=== PATIENT | female | born 1930 | race Caucasian/White ===

== ENCOUNTER 2016-10-24 15:15 | Observation (INO) | payer OTHER ==
--- NOTE | 2016-10-24 16:36 | PDOC ---
History of Present Illness - General History Source: Patient, Family Exam Limitations: No Limitations - History of Present Illness Initial Comments: 10/24/16 16:35 The patient is an 86F with a PMH of HTN and glaucoma who presents to the ED via EMS after an episode of lightheadedness. The patient was at her ophthamologist' s office and felt lightheaded and began seeing illusions. She was given water and sent to the ED. The patient now states that she feels fine and nothing is going on. PSH: cholecystectomy ALlergies: ASA Social: does not smoke, drink, or use recreational drugs <Guillermo Knott - Last Filed: 11/08/16 13:42> <Zoe Pritchett - Last Filed: 11/09/16 12:04> - General Chief Complaint: Blood Pressure Problem Stated Complaint: LOW BLOOD PRESSURE Time Seen by Provider: 10/24/16 15:28 Past History - Past Medical History HTN: Yes - Immunization History Immunization Up to Date: Yes - Psycho/Social/Smoking Cessation Hx Suicidal Ideation: No Smoking History: Never smoked <Guillermo Knott - Last Filed: 11/08/16 13:42> <Zoe Pritchett - Last Filed: 11/09/16 12:04> - Past Medical History Allergies/Adverse Reactions: Allergies Allergy/AdvReac Type Severity Reaction Status Date / Time aspirin Allergy Verified 10/24/16 16:31 Home Medications: Ambulatory Orders Brimonidine Tartrate/Timolol [Combigan 0.2%-0.5% Eye Drops] 10 ml OP DAILY 10/25 Miscellaneous Medical Supply [Outpatient Order] 1 each ASDIR #1 misc Sulfamethoxazole/Trimethoprim [Bactrim DS -] 1 tab PO BID #2 tablet 10/25/16 Review of Systems - Review of Systems Able to Perform ROS?: Yes Is the patient limited Vietnamese proficient: No Constitutional: No: Chills, Fever HEENTM: No: Eye Pain, Blurred Vision Respiratory: No: Cough, Shortness of Breath Cardiac (ROS): No: Chest Pain, Palpitations ABD/GI: No: Abdominal Distended, Constipated, Diarrhea, Nausea, Vomiting : No: Burning, Dysuria, Discharge Neurological: No: Headache, Numbness, Paresthesia, Tingling, Weakness <Oraha,Guillermo - Last Filed: 11/08/16 13:42> *Physical Exam - Vital Signs Last Vital Signs Temp Pulse Resp BP Pulse Ox 97.9 F 54 L 18 78/59 99 10/24/16 15:37 10/24/16 15:37 10/24/16 15:37 10/24/16 15:37 10/24/16 15:37 - Physical Exam General Appearance: Yes: Nourished, Appropriately Dressed HEENT: positive: Pale Conjunctivae. negative: Muffled/Hoarse voice Respiratory/Chest: positive: Lungs Clear, Normal Breath Sounds. negative: Chest Tender, Respiratory Distress Cardiovascular: positive: Regular Rhythm, S1, S2, Bradycardia, Systolic Murmur ( aortic stenosis) Gastrointestinal/Abdominal: positive: Flat, Soft. 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 negative: EOM Palsy, Numbness, Sensory Deficit, Confused, Disoriented <Guillermo Knott - Last Filed: 11/08/16 13:42> - Vital Signs Last Vital Signs Temp Pulse Resp BP Pulse Ox 97.8 F 67 18 146/76 100 10/25/16 18:00 10/25/16 18:00 10/25/16 17:00 10/25/16 17:00 10/25/16 09:00 <Zoe Pritchett - Last Filed: 11/09/16 12:04> Heart Score/ECG Review - Roxbury Roxbury: Left Roxbury Deviation - QRS Widened: LBBB - ECG Impressions Bradycardia: Yes Heart Block: 1st Degree Block(>20mils) <Guillermo Knott - Last Filed: 11/08/16 13:42> ED Treatment Course - LABORATORY CBC & Chemistry Diagram: 10/24/16 16:42 10/25/16 06:00 <Guillermo Knott - Last Filed: 11/08/16 13:42> - LABORATORY CBC & Chemistry Diagram: 10/24/16 16:42 10/25/16 06:00 - ADDITIONAL ORDERS Additional order review: 10/24/16 16:42 RBC 3.88 MCV 98.9 H MCHC 32.5 RDW 13.6 MPV 7.7 Neutrophils % 73.0 Lymphocytes % 18.7 Monocytes % 6.1 Eosinophils % 1.6 Basophils % 0.6 - Medications Given in the ED: ED Medications Discontinued Medications Generic Name Dose Route Start Last Admin Trade Name Rossy PRN Reason Stop Dose Admin Glucagon 3 mg 10/24/16 17:03 10/24/16 17:19 Glucagon - IVPUSH 10/24/16 17:04 3 mg ONCE ONE Administration Glucagon 3 mg 10/24/16 21:02 10/24/16 22:43 Glucagon - IVPUSH 10/24/16 21:03 Not Given ONCE ONE Heparin Sodium (Porcine) 5,000 unit 10/24/16 22:15 10/25/16 13:34 Heparin - SQ 5,000 unit TID BAN Administration Sodium Chloride 500 mls @ 500 mls/hr 10/24/16 19:02 10/24/16 19:06 Normal Saline - IV 10/24/16 20:01 500 mls/hr ASDIR STA Administration Ceftriaxone Sodium 1 gm/ 50 mls @ 100 mls/hr 10/24/16 20:47 10/24/16 21:02 Dextrose IVPB 10/24/16 21:16 100 mls/hr ONCE ONE Administration Sodium Chloride 500 mls @ 500 mls/hr 10/24/16 22:03 10/25/16 00:06 Normal Saline - IV 10/24/16 23:02 500 mls/hr ASDIR STA Administration Sodium Chloride 1,000 mls @ 75 mls/hr 10/24/16 22:30 10/25/16 01:01 Normal Saline - IV 75 mls/hr ASDIR BAN Administration Sodium Chloride 1,000 mls @ 75 mls/hr 10/25/16 02:39 10/25/16 09:16 Normal Saline - IV 10/26/16 11:49 75 mls/hr ASDIR BAN Administration Ceftriaxone Sodium 50 mls @ 100 mls/hr 10/25/16 12:15 10/25/16 13:34 Rocephin 1gm Ivpb (Pre-Docked) IVPB 100 mls/hr DAILY BAN Administration Sodium Chloride 250 ml 10/24/16 20:47 10/24/16 21:02 Normal Saline - IV 10/24/16 20:48 250 ml ONCE ONE Administration <Zoe Pritchett - Last Filed: 11/09/16 12:04> Medical Decision Making - Medical Decision Making 10/24/16 16:52 The patient is an 86F with a PMH of HTN and glaucoma who presented to the ED after an episode of lightheadedness. The patient has no current complaints. I have done a chest pain workup on the patient and basic labs. 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 <Guillermo Knott - Last Filed: 11/08/16 13:42> *DC/Admit/Observation/Transfer - Discharge Dispostion Admit: Yes - Attestations Physician Attestion: 11/08/16 13:42 I, Dr. Guillermo Knott, attest that this document has been prepared under my direction and personally reviewed by me in its entirety. I further attest, that it accurately reflects all work, treatment, procedures and medical decision -making performed by me. <Guillermo Knott - Last Filed: 11/08/16 13:42> <Zoe Pritchett - Last Filed: 11/09/16 12:04> Diagnosis at time of Disposition: Orthostatic hypotension UTI (urinary tract infection) Qualifiers: Urinary tract infection type: site unspecified Hematuria presence: without hematuria Qualified Code(s): N39.0 - Urinary tract infection, site not specified - Discharge Dispostion Disposition: HOME Condition at time of disposition: Stable - Prescriptions
--- NOTE | 2016-10-24 16:36 | PDOC ---
Attending Attestation - Resident Resident Name: Jose AntonioGuillermo rivera - ED Attending Attestation I have performed the following: I have examined & evaluated the patient, The case was reviewed & discussed with the resident, I agree w/resident's findings & plan, Exceptions are as noted - HPI HPI: 86 yo F history HTN, glaucoma presents with episode of lightheadedness. 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 She states that she feels better now, no complaints at present. - Physicial Exam PE: GENERAL: Awake, alert, and fully oriented, in no acute distress. Mild pallor. HEAD: No signs of trauma EYES: PERRLA, EOMI, sclera anicteric, conjunctiva clear ENT: Auricles normal inspection, hearing grossly normal, nares patent, oropharynx clear without exudates. Dry mucosa NECK: Normal ROM, supple, no lymphadenopathy, JVD, or masses LUNGS: Breath sounds equal, clear to auscultation bilaterally. No wheezes, and no crackles HEART: Regular rate and rhythm, normal S1 and S2, no murmurs, rubs or gallops ABDOMEN: Soft, nontender, normoactive bowel sounds. No guarding, no rebound. No masses EXTREMITIES: Normal range of motion, no edema. No clubbing or cyanosis. No cords, erythema, or tenderness NEUROLOGICAL: Cranial nerves II through XII grossly intact. Normal speech, normal gait SKIN: Warm, Dry, normal turgor, no rashes or lesions noted. - Medical Decision Making Pt noted to have significant hypotension on arrival. She mentions that she recently had a decrease in her BP medication, but perhaps she is still taking too much. will give her glucagon to reverse. Will gently hydrate as well. Anticipate admission to tele.
[2016-10-24 16:52] LABS: BASOPHIL 0.6 % (0-2.0); EOSINOPHIL 1.6 % (0-4.5); MCH 32.2 pg (25.7-33.7); MCHC 32.5 g/dl (32.0-36.0); MEAN CELL VOLUME 98.9 fl (80-96); MEAN PLT VOLUME 7.7 fl (7.5-11.1); PLATELET COUNT 184 K/MM3 (134-434); RDW 13.6 % (11.6-15.6); WHITE BLOOD COUNT 5.4 K/mm3 (4.0-10.0)
[2016-10-24] MEDS ORDERED: GLUCAGON 1 MG KIT IVPUSH ONE ×2 (17:03→21:02)
[2016-10-24] MEDS ORDERED: GlUCAGON HUMAN RECOMBINANT 1 MG/VIAL ONE ×4 (17:16→21:31)
[2016-10-24 17:18] LABS: ALBUMIN 3.2 g/dl (3.4-5.0); ANION GAP 12 (8-16); BILIRUBIN,TOTAL 0.5 mg/dL (0.2-1.0); CALCIUM 8.2 mg/dL (8.5-10.1); CO2 18 mmol/L (21-32); CREATININE 1.4 mg/dL (0.55-1.02); GLUCOSE,RANDOM 139 mg/dL (74-106); SGPT/ALT 17 U/L (12-78); TOT PROT 6.3 g/dl (6.4-8.2)
[2016-10-24 17:19] LABS: ALK PHOS 71 U/L (45-117)
[2016-10-24 17:23] LABS: SGOT/AST 20 U/L (15-37)
[2016-10-24 17:47] LABS: TROPONIN I < 0.02 ng/ml (0.00-0.05)
[2016-10-24 18:39] LABS: URINE APPEARANCE CLEAR; URINE BILIRUBIN NEGATIVE (NEGATIVE); URINE BLOOD 1+ (NEGATIVE); URINE COLOR YELLOW; URINE GLUCOSE (UA) NEGATIVE (NEGATIVE); URINE KETONE NEGATIVE (NEGATIVE); URINE NITRITE NEGATIVE (NEGATIVE); URINE PROTEIN NEGATIVE (NEGATIVE); URINE UROBILINOGEN NEGATIVE mg/dL (0.2-1.0)
[2016-10-24 18:44] LABS: URINE LEUK ESTERASE 3+ (NEGATIVE)
[2016-10-24 18:56] LABS: GRANULAR CASTS 2 /lpf; URINE HYALINE CAST 2 /lpf; URINE MUCUS RARE; URINE RBC 12 /hpf (0-3); URINE WBC 85 /hpf (3-5)
[2016-10-24] MEDS ORDERED: SODIUM CHLORIDE 500 ML IV STA ×2 (19:02→22:03)
[2016-10-24] MEDS ORDERED: CEFTRIAXONE 1 GM in DEXTROSE 5%-WATER - 50 ML IVPB ONE (20:47)
[2016-10-24] MEDS ORDERED: SODIUM CHLORIDE 0.9% 1000 ML INFUS.BAG IV ONE (20:47)
[2016-10-24] MEDS ORDERED: CEFTRIAXONE 50 ML ONE (20:56)
--- NOTE | 2016-10-24 22:14 | HP ---
HISTORY OF PRESENT ILLNESS: Patient is an 86 year old female with a PMHx of HTN and glaucoma who presented today for complaints of dizziness, lightheadedness, and hypotension. Patient was at the ENT clinic then all of a sudden she felt very weak and slumped over and was told to come to the ED. Patient reports when she stands up it worsens and when she is given water it improves. She also reports having diarrhea for the last year after having her gallbladder removed. Otherwise, patient denies chest pain, palpitations, abdominal pain, vomiting, hematuria, dysuria, frequency. PHYSICAL EXAMINATION Vital Signs - 24 hr 10/24/16 10/24/16 10/24/16 15:37 17:00 17:34 Temperature 97.9 F Pulse Rate 54 L Pulse Rate [ 51 L 57 L Apical] Respiratory 18 16 16 Rate Blood Pressure 78/59 Blood Pressure 88/50 109/52 [Right Arm] O2 Sat by Pulse 99 100 100 Oximetry (%) 10/24/16 10/24/16 10/24/16 18:33 18:57 19:58 Temperature 97.1 F L 97.4 F L Pulse Rate Pulse Rate [ 60 61 Apical] Respiratory 18 15 Rate Blood Pressure Blood Pressure 88/60 91/52 [Right Arm] O2 Sat by Pulse 100 99 Oximetry (%) GENERAL: Awake, alert, and fully oriented, in no acute distress. HEAD: Normal with no signs of trauma. EYES: Sclera anicteric, pale conjunctiva LUNGS: Breath sounds equal, clear to auscultation bilaterally. No wheezes, and no crackles. No accessory muscle use. HEART: Bradycardia with regular rhythm, normal S1 and S2 without murmur, rub or gallop. ABDOMEN: Soft, nontender, not distended, normoactive bowel sounds, no guarding, no rebound, no masses. LOWER EXTREMITIES: No peripheral edema. NEUROLOGICAL: Normal speech. Motor strength 5/5 bilaterally. Sensory intact. Laboratory Results - last 24 hr 10/24/16 10/24/16 10/24/16 16:42 16:42 16:45 WBC 5.4 RBC 3.88 Hgb 12.5 Hct 38.4 MCV 98.9 H MCH 32.2 MCHC 32.5 RDW 13.6 Plt Count 184 MPV 7.7 Neutrophils % 73.0 Lymphocytes % 18.7 Monocytes % 6.1 Eosinophils % 1.6 Basophils % 0.6 Sodium 140 Potassium 4.4 Chloride 110 H Carbon Dioxide 18 L Anion Gap 12 BUN 26 H Creatinine 1.4 H Creat Clearance w eGFR 35.82 Random Glucose 139 H Lactic Acid Calcium 8.2 L Total Bilirubin 0.5 AST 20 ALT 17 Alkaline Phosphatase 71 Creatine Kinase 40 Troponin I < 0.02 Total Protein 6.3 L Albumin 3.2 L Urine Color Urine Appearance Urine pH Ur Specific [place] Urine Protein Urine Glucose (UA) Urine Ketones Urine Blood Urine Nitrite Urine Bilirubin Urine Urobilinogen Ur Leukocyte Esterase Urine RBC Urine WBC Ur Epithelial Cells Hyaline Casts Granular Casts Urine Mucus 10/24/16 10/24/16 16:45 18:31 WBC RBC Hgb Hct MCV MCH MCHC RDW Plt Count MPV Neutrophils % Lymphocytes % Monocytes % Eosinophils % Basophils % Sodium Potassium Chloride Carbon Dioxide Anion Gap BUN Creatinine Creat Clearance w eGFR Random Glucose Lactic Acid 1.8 Calcium Total Bilirubin AST ALT Alkaline Phosphatase Creatine Kinase Troponin I Total Protein Albumin Urine Color Yellow Urine Appearance Clear Urine pH 5.0 Ur Specific [place] 1.015 Urine Protein Negative Urine Glucose (UA) Negative Urine Ketones Negative Urine Blood 1+ H Urine Nitrite Negative Urine Bilirubin Negative Urine Urobilinogen Negative Ur Leukocyte Esterase 3+ H Urine RBC 12 Urine WBC 85 Ur Epithelial Cells Rare Hyaline Casts 2 Granular Casts 2 Urine Mucus Rare Chest X-Ray (10/24/16): No acute pathology ASSESSMENT/PLAN: Patient is an 86 year old female with a PMHx of HTN and Glaucoma who presents s/ p syncopal episode. Patient was found to be hypotensive, bradycardic with ARMOND. Patient admitted for further monitoring and management. ASSESSMENT: -Pre-Syncopal Episode likely secondary to hypovolemia r/o neurological etiology vs cardiac etiology vs. medication induced -Hypotension -Bradycardia -ARMOND likely secondary to hypovolemia -Gastroenteritis -UTI -Hyperglycemia/insulin resistance PLAN -IV Fluids with NS -Othrostatics -Carotid doppler, ECHO, Lipid panel, A1C -TSH and Lyme ordered -Cortisol level -Neuro Consult -Cardiology consult placed -Will hold home medication Acetazolamide as it may be the reason for her hypovolemia and pre-syncopal episode -Ceftriaxone daily for UTI -CBC/BMP -Monitor Vitals -Fall risk -Prophylaxis with heparin SQ -Cardiac monitoring on telemetry Discussed with medical team and attending. Full H&P to follow Visit type - Emergency Visit Emergency Visit: Yes ED Registration Date: 10/24/16 Care time: The patient presented to the Emergency Department on the above date and was hospitalized for further evaluation of their emergent condition. - New Patient This patient is new to me today: Yes Date on this admission: 10/24/16 - Critical Care Critical Care patient: No
[2016-10-24] MEDS ORDERED: SODIUM CHLORIDE 1,000 ML IV SCH (22:30)
--- NOTE | 2016-10-24 22:40 | HP ---
CHIEF COMPLAINT: Dizziness, lightheadedness PCP: Aj Umanzor. HISTORY OF PRESENT ILLNESS: Patient is an 86 Year old white independent female, with PMHx of Glaucoma, HTN, who presented to the hospital today due to lightheadedness, dizziness and low blood pressure. She was in the ophthalmology clinic when she felt very drowsy and fatigue associated with visual illusions. She suddenly slumped over without loss of consciousness. However patient improved after giving her a cup of water and was sent to the ED. She reports worsening symptoms of dizziness and lightheadedness when standing up suddenly or getting out of bed. She reports loss of appetite and weight loss in the last 6 months, She complains of non bloody diarrhea (loose stool, 3 times/day ) since her gallbladder removal one year ago. She reports nocturn polyuria ( 3 times at night) She reports dyspnea on exertion and orthopnea( she uses 3 pillows at night ). She denies any fever, chills, headache, chest pain, abdominal pain, N/V , dysuria, hematuria, hemetemesis or melena. She denies any heat or cold intolerance but she reports dryness in her skin. She uses Acetazolamide 250 mg TID and an eye drop TID. ER course was notable for: (1)EK degree Av block , diego cardia @ 51 (2)NS Bolus 500 CC (3) Orthostatics: negative 123/52 supine, 115/58 sitting, 108/63 standing. Recent Travel:NO PAST MEDICAL HISTORY:HTN, Pre-diabetics, Cataract, Glaucoma. PAST SURGICAL HISTORY: Cataract left eye, cholecystectomy September 2015, . Social History: live by her self Smoking:None Alcohol:None Drugs: None Family History: significant for HTN, DM, Heart diseases. Allergies aspirin Allergy (Verified 10/24/16 16:31) HOME MEDICATIONS: * Acetazolamid 250 mg PO TID * combigan 0.2-0.5 % Eye drop TID * Bystolic 5 mg , 1/2 tab a day . Active Medications Generic Name Dose Route Start Last Admin Trade Name Freq PRN Reason Stop Dose Admin Heparin Sodium (Porcine) 5,000 unit 10/24/16 22:15 Heparin - SQ TID BAN Sodium Chloride 1,000 mls @ 75 mls/hr 10/24/16 22:30 Normal Saline - IV ASDIR BAN REVIEW OF SYSTEMS CONSTITUTIONAL: Absent: fever, chills, diaphoresis, +generalized weakness, malaise, loss of appetite, lost weight during last 6 months. HEENT: Absent: rhinorrhea, nasal congestion, throat pain, throat swelling, difficulty swallowing, mouth swelling, ear pain, eye pain, visual changes(catarract, glaucoma) CARDIOVASCULAR: Absent: chest pain,+ syncope, palpitations, irregular heart rate, lightheadedness, peripheral edema RESPIRATORY: Absent: cough, shortness of breath, dyspnea with exertion, orthopnea, wheezing, stridor, hemoptysis GASTROINTESTINAL: Absent: abdominal pain, abdominal distension, nausea, vomiting, diarrhea, constipation, melena, hematochezia GENITOURINARY: Absent: dysuria, frequency, urgency, hesitancy, hematuria, flank pain, genital pain MUSCULOSKELETAL: Absent: myalgia, arthralgia, joint swelling, back pain, neck pain SKIN: Absent: rash, itching, pallor HEMATOLOGIC/IMMUNOLOGIC: Absent: easy bleeding, easy bruising, frequent infections ENDOCRINE: Absent: unexplained weight gain, unexplained weight loss, heat intolerance, cold intolerance NEUROLOGIC: Absent: headache, focal weakness or paresthesias, dizziness, unsteady gait, seizure, mental status changes, bladder or bowel incontinence PSYCHIATRIC: Absent: anxiety, depression, suicidal or homicidal ideation, hallucinations. PHYSICAL EXAMINATION Vital Signs - 24 hr 10/24/16 10/24/16 10/24/16 15:37 17:00 17:34 Temperature 97.9 F Pulse Rate 54 L Pulse Rate [ 51 L 57 L Apical] Respiratory 18 16 16 Rate Blood Pressure 78/59 Blood Pressure 88/50 109/52 [Right Arm] O2 Sat by Pulse 99 100 100 Oximetry (%) 10/24/16 10/24/16 10/24/16 18:33 18:57 19:58 Temperature 97.1 F L 97.4 F L Pulse Rate Pulse Rate [ 60 61 Apical] Respiratory 18 15 Rate Blood Pressure Blood Pressure 88/60 91/52 [Right Arm] O2 Sat by Pulse 100 99 Oximetry (%) GENERAL: Awake, alert, and fully oriented, in no acute distress. HEAD: Normal with no signs of trauma. EYES: Pupils equal, round and reactive to light, extraocular movements intact, conjunctiva pallor. No lid lag.Cataract left eye. NECK: Normal range of motion, supple without lymphadenopathy, JVD, or masses. LUNGS: Breath sounds equal, clear to auscultation bilaterally. No wheezes, and no crackles. No accessory muscle use. HEART: sinus diego , normal S1 and S2 without murmur, rub or gallop. ABDOMEN: Soft, nontender, not distended, normoactive bowel sounds, no guarding, no rebound, no masses. No hepatomegaly or splenomegaly. MUSCULOSKELETAL: Normal range of motion at all joints. No bony deformities or tenderness. No CVA tenderness. UPPER EXTREMITIES: 2+ pulses, warm, well-perfused. No cyanosis. No clubbing. No peripheral edema. LOWER EXTREMITIES: 2+ pulses, warm, well-perfused. No calf tenderness. No peripheral edema. NEUROLOGICAL: Normal speech. Normal gait. PSYCHIATRIC: Cooperative. Good eye contact. Appropriate mood and affect. SKIN: Warm, dry, normal turgor, no rashes or lesions noted, normal capillary refill. dry mucous membranes. Laboratory Results - last 24 hr 10/24/16 10/24/16 10/24/16 16:42 16:42 16:45 WBC 5.4 RBC 3.88 Hgb 12.5 Hct 38.4 MCV 98.9 H MCH 32.2 MCHC 32.5 RDW 13.6 Plt Count 184 MPV 7.7 Neutrophils % 73.0 Lymphocytes % 18.7 Monocytes % 6.1 Eosinophils % 1.6 Basophils % 0.6 Sodium 140 Potassium 4.4 Chloride 110 H Carbon Dioxide 18 L Anion Gap 12 BUN 26 H Creatinine 1.4 H Creat Clearance w eGFR 35.82 Random Glucose 139 H Lactic Acid Calcium 8.2 L Total Bilirubin 0.5 AST 20 ALT 17 Alkaline Phosphatase 71 Creatine Kinase 40 Troponin I < 0.02 Total Protein 6.3 L Albumin 3.2 L Urine Color Urine Appearance Urine pH Ur Specific [place] Urine Protein Urine Glucose (UA) Urine Ketones Urine Blood Urine Nitrite Urine Bilirubin Urine Urobilinogen Ur Leukocyte Esterase Urine RBC Urine WBC Ur Epithelial Cells Hyaline Casts Granular Casts Urine Mucus 10/24/16 10/24/16 16:45 18:31 WBC RBC Hgb Hct MCV MCH MCHC RDW Plt Count MPV Neutrophils % Lymphocytes % Monocytes % Eosinophils % Basophils % Sodium Potassium Chloride Carbon Dioxide Anion Gap BUN Creatinine Creat Clearance w eGFR Random Glucose Lactic Acid 1.8 Calcium Total Bilirubin AST ALT Alkaline Phosphatase Creatine Kinase Troponin I Total Protein Albumin Urine Color Yellow Urine Appearance Clear Urine pH 5.0 Ur Specific [place] 1.015 Urine Protein Negative Urine Glucose (UA) Negative Urine Ketones Negative Urine Blood 1+ H Urine Nitrite Negative Urine Bilirubin Negative Urine Urobilinogen Negative Ur Leukocyte Esterase 3+ H Urine RBC 12 Urine WBC 85 Ur Epithelial Cells Rare Hyaline Casts 2 Granular Casts 2 Urine Mucus Rare CXR: No acute Pathology EK degree Av block , diego cardia @ 51 ASSESSMENT/PLAN: Patient is an 86 Year old white independent female, with PMHx of Glaucoma, cataract, HTN, who presented to the hospital today due to lightheadedness and dizziness was found to have low blood pressure 88/52. and wad admitted to monitor tele for observation. #Pre Syncopal episode likely 2/2 hypovolemia vs med side effect(Acetazolamide) vs cardiac vs nuero * IV fluids: NS 0.9 500 bolus followed by 75cc maintenance * Orthostatics: negative 123/52 supine, 115/58 sitting, 108/63 standing. * CBC, CMP * TSH, Lyme antibodies * Echo , EKG, Carotid doppler * lipid panel * gambling monitor * BP monitor * Hold acetazolamide for now * Vitals Q 4 Hr * * * # Hypotension : * 88/52 on admission improved to 109/52 with fluids * hold BP medicine Acetazolamide * BP monitor * # Digeo cardia, * P rate 51 on admission , improved to 61 * electronic device monitor * Vitals Q 4 * Hold Bystolic meds # UTI * Leuckoesterase + 3 * Start ceftriaxone 1 g IV in the Ed * continue Ceftriaxone 1 gm PO daily # ARMOND:likely 2/2 Hypovolemia (pre-renal) * BUN/CR:26/1.4 * IV fluids: NS 0.9 500 bolus followed by 75cc maintenance * encourage oral intake * F/U BUN/Cr # Hyperglycemia, pre-diabetic * Random Glucose 139 * HgA1c was ordered * Change life style * patient education # Glaucoma, chronic * Continue home meds cambigan 0.2-0.5% TID eye drop * F/U as out patient # F/E/N * NS@ 75 CC/Hr * Electrolytes WNL * regular diet # Proph * DVT: low risk , 5000 heparin SQ QHR * # Dispo * Admit for observation * Full code * Stewart Dahdal PGY1 Case was discussed with the medical team . Visit type - Emergency Visit Emergency Visit: Yes ED Registration Date: 10/24/16 Care time: The patient presented to the Emergency Department on the above date and was hospitalized for further evaluation of their emergent condition. - New Patient This patient is new to me today: Yes Date on this admission: 11/08/16 - Critical Care Critical Care patient: No
[2016-10-25] MEDS: HEPARIN NA (PORCINE) 5,000 UNITS/ML 1ML VIAL SQ SCH ×3 (00:07→13:34)
[2016-10-25 01:27] VITALS: BMI 23.1
[2016-10-25] MEDS ORDERED: SODIUM CHLORIDE 1,000 ML IV SCH (02:39)
[2016-10-25 05:32] LABS: CHOLESTEROL 221 mg/dL (50-200); LDL CHOLESTEROL (ONLY SJRH) 138 mg/dL (5-100)
--- NOTE | 2016-10-25 06:51 | PN ---
Teaching Attending Note Name of Resident: Stewart Vail ATTENDING PHYSICIAN STATEMENT I saw and evaluated the patient. I reviewed the resident's note and discussed the case with the resident. I agree with the resident's findings and plan as documented. SUBJECTIVE: 86 y/o female brought in for dizziness and presyncope OBJECTIVE:On examination found to be A&Ox3 in NAD. Bradycardic with positive chronotropic response and hypotensive. No M/G/R. Lungs CTA. CBCD WBC 5.4 K/mm3 (4.0-10.0) 10/24/16 16:42 RBC 3.88 M/mm3 (3.60-5.2) 10/24/16 16:42 Hgb 12.5 GM/dL (10.7-15.3) 10/24/16 16:42 Hct 38.4 % (32.4-45.2) 10/24/16 16:42 MCV 98.9 fl (80-96) H 10/24/16 16:42 MCHC 32.5 g/dl (32.0-36.0) 10/24/16 16:42 RDW 13.6 % (11.6-15.6) 10/24/16 16:42 Plt Count 184 K/MM3 (134-434) 10/24/16 16:42 MPV 7.7 fl (7.5-11.1) 10/24/16 16:42 CMP Sodium 140 mmol/L (136-145) 10/24/16 16:42 Potassium 4.4 mmol/L (3.5-5.1) 10/24/16 16:42 Chloride 110 mmol/L (98-107) H 10/24/16 16:42 Carbon Dioxide 18 mmol/L (21-32) L 10/24/16 16:42 Anion Gap 12 (8-16) 10/24/16 16:42 BUN 26 mg/dL (7-18) H 10/24/16 16:42 Creatinine 1.4 mg/dL (0.55-1.02) H 10/24/16 16:42 Creat Clearance w eGFR 35.82 (>60) 10/24/16 16:42 Calcium 8.2 mg/dL (8.5-10.1) L 10/24/16 16:42 Total Bilirubin 0.5 mg/dL (0.2-1.0) 10/24/16 16:42 AST 20 U/L (15-37) 10/24/16 16:42 ALT 17 U/L (12-78) 10/24/16 16:42 Alkaline Phosphatase 71 U/L (45-117) 10/24/16 16:42 Total Protein 6.3 g/dl (6.4-8.2) L 10/24/16 16:42 Albumin 3.2 g/dl (3.4-5.0) L 10/24/16 16:42 ASSESSMENT AND PLAN: Dizziness with presyncope possibly secondary to medications vs arrythmia, admit to telemetry, fall risk precautions. Get TSH, Cortisol in AM, ECHO and hold HTN medications. Cardiology consult Dr Vinson. UTI- ceftriaxone. Hypotension- IVF bolus 250cc and gentle hydration.
[2016-10-25 09:18] LABS: ANION GAP 8 (8-16); CALCIUM 7.7 mg/dL (8.5-10.1); CO2 19 mmol/L (21-32); CREATININE 1.1 mg/dL (0.55-1.02); GLUCOSE,RANDOM 93 mg/dL (74-106)
--- NOTE | 2016-10-25 11:22 | CONSULT ---
Consult - text type - Consultation Consultation Note: Cardiology HISTORY OF PRESENT ILLNESS: Patient is an 86 Year old white independent female, with PMHx of Glaucoma, HTN, who presented to the hospital today due to lightheadedness, dizziness and low blood pressure. She was in the ophthalmology clinic when she felt very drowsy and fatigue associated with visual illusions. She suddenly slumped over without loss of consciousness. However patient improved after giving her a cup of water and was sent to the ED. She reports worsening symptoms of dizziness and lightheadedness when standing up suddenly or getting out of bed. She reports loss of appetite and weight loss in the last 6 months; non bloody diarrhea (loose stool, 3 times/day ) since her gallbladder removal one year ago ; nocturn polyuria ( 3 times at night); dyspnea on exertion and orthopnea( she uses 3 pillows at night ). Orthostatics: negative 123/52 supine, 115/58 sitting, 108/63 standing. PAST MEDICAL HISTORY:HTN, Pre-diabetics, Cataract, Glaucoma. PAST SURGICAL HISTORY: Cataract left eye, cholecystectomy September 2015, . Social History: Smoking:None Alcohol:None Drugs: None Family History: significant for HTN, DM, Heart diseases. Allergies aspirin Allergy (Verified 10/24/16 16:31) HOME MEDICATIONS: * Acetazolamid 250 mg PO TID * combigan 0.2-0.5 % Eye drop TID * Bystolic 5 mg , 1/2 tab a day . * PE vitals table normal cardio-pulmonary exam abdomen soft no leg edema Impression: presyncope or near syncope stable from cardiac standpoint; further evaluation to continue Rec: telemetry Echocardiogram EKG
--- NOTE | 2016-10-25 12:08 | PN ---
Teaching Attending Note Name of Resident: Ramiro Tee ATTENDING PHYSICIAN STATEMENT I saw and evaluated the patient. I reviewed the resident's note and discussed the case with the resident. I agree with the resident's findings and plan as documented. SUBJECTIVE:states her symptoms have resolved. no repeated episodes of drowsiness or LOC. states she is compliant with her medications and take them daily. no recent changes to medication and denies possibility of taking too much. admits to nocturia but denies dysuria or hematuria. denies CP, SOB, fever , chills, palpitations. decrease oral intake OBJECTIVE: Last Vital Signs Temp Pulse Resp BP Pulse Ox 97.7 F 58 L 22 121/67 100 10/25/16 10:10/25/16 10:00 10/25/16 10:10/25/16 10:10/25/16 09:00 General NAD CV S1 S2 bradycardic no murmur/rub/gallop no carotid bruit Lungs CTA B/L no wheezing/rales/rhonchi Abdomen soft NT/ND no suprapubic tenderness Extremities no pedal edema ASSESSMENT AND PLAN: 86yo F with PMH HTN and glaucoma presented to the ER and was admitted for pre- syncope 1. Pre-syncope- likely due to bradycardia vs dehydration. s/p glucagon in the ER. EKG showing 1st degree Heart block. TSH WNL. HR improves iwth activity. no events noted on bradycardia on tele monitoring. will check echo to r/o structural disease, carotid doppler. orthostatics negative on admission however obtained after IVF. hold home medications. cardio consulted 2. UTI- admits to only nocturia which can be suggestive of DM however A1c 5. will treat for likely symptomatic. on Ceftriaxone 1g day day 2. no cx obtained. 3. ARMOND- likely dehydration. improved with IVF. cont 4. Hypotension- due to bradycardia vs dehydration vs polypharmacy- takes bystolic and acetazolamide. hold both medications. improvement in BP. monitor 5. glaucoma- cont combigan ggt 6. DVT ppx- EAM 7. will need minimum of 24H of tele monitor. if bradycardia improves and remains asymptomatic. if workup is negative can be d/c
[2016-10-25] MEDS ORDERED: CEFTRIAXONE 50 ML IVPB SCH (12:15)
--- NOTE | 2016-10-25 13:49 | EKG ---
Test Reason : Blood Pressure : / mmHG Vent. Rate : 066 BPM Atrial Rate : 066 BPM P-R Int : 212 ms QRS Dur : 128 ms QT Int : 428 ms P-R-T Axes : 076 -57 090 degrees QTc Int : 448 ms SINUS RHYTHM WITH 1ST DEGREE A-V BLOCK WITH PREMATURE ATRIAL COMPLEXES LEFT AXIS DEVIATION LEFT BUNDLE BRANCH BLOCK ABNORMAL ECG WHEN COMPARED WITH ECG OF 24-OCT-2016 15:44, PREMATURE ATRIAL COMPLEXES ARE NOW PRESENT Confirmed by JAZMINE URIARTE MD ([id number]) on 10/25/2016 1:49:13 PM Referred By: FERNANDA WATSON Confirmed By:JAZMINE URIARTE MD
--- NOTE | 2016-10-25 15:35 | DS ---
Physical Exam: LABS Laboratory Results - last 24 hr Selected Entries 10/24/16 10/24/16 10/24/16 15:37 17:00 17:34 Pulse Rate 54 L Pulse Rate [ 51 L 57 L Apical] Blood Pressure 78/59 Blood Pressure 88/50 109/52 [Right Arm] 10/24/16 10/24/16 10/25/16 18:57 22:30 05:57 Pulse Rate 62 Pulse Rate [ 60 56 L Apical] Blood Pressure 105/55 Blood Pressure 88/60 107/54 [Right Arm] Laboratory Tests 10/24/16 10/24/16 10/25/16 16:42 18:31 01:26 BUN 26 H Creatinine 1.4 H Hemoglobin A1c % Triglycerides 154 Cholesterol 221 H Total LDL Cholesterol 138 H HDL Cholesterol 53 TSH Urine Glucose (UA) Negative Urine Ketones Negative Ur Leukocyte Esterase 3+ H Urine RBC 12 Urine WBC 85 10/25/16 10/25/16 10/25/16 01:42 01:43 06:00 BUN 26 H Creatinine 1.1 H D Hemoglobin A1c % 5.0 Triglycerides Cholesterol Total LDL Cholesterol HDL Cholesterol TSH 0.92 Urine Glucose (UA) Urine Ketones Ur Leukocyte Esterase Urine RBC Urine WBC CXR-No acute pathology Carotid Doppler- Minimal atherosclerotic disease with no significant stenosis Echo-Septal motion consistent with conduction abnormality. Normal RV/LV size and function. HOSPITAL COURSE: Date of Admission:10/24/16 Date of Discharge: 10/25/16 Pre-Hospital Course 86 year old F with a PMH of glaucoma and HTN who presented to the ED due to lightheadedness, dizziness, and was found to be hypotensive. Patient was at the ophthalmology clinic when she felt drowsy and fatigued. She slumped over without loss of consciousness. She was given a cup of water and her symptoms improved. She was sent to the ED and by then she felt back to normal. ED Course In the ED, she had an EKG, which showed 1st degree AV block and sinus bradycardia with a HR of 51. She was given 1 NS bolus 500 cc, and 3 mg of glucagon. She had orthostatics performed, which were negative at the time. Labs were drawn, which showed an ARMOND with a cr of 1.4. UA showed 3+ LE and 85 wbc. She was started on ceftriaxone 1g IV. She was admitted for a presyncopal episode likely seocndary to hypovolemia vs possible medication induced. Hospital Course Due to this episode, her acetazolamide and bystolic were held inpatient. In the hospital, patient received an echo and carotid doppler to r/o any cardiac/neuro causes for presyncope (Results above). Patient's creatinine improved with fluids to 1.1. Hba1c was done, which was 5.0. Post Hospital Course Patient was discharged home and instructed to f/u with her PCP and her customer services coordinator. She was told to hold her acetazolamide and bystolic and check her BP daily. Patient will also take 1 dose of bactrim to complete a 3 day course for a UTI. Minutes to complete discharge: 31 Discharge Summary Reason For Visit: URINARY TRACT INFECTION, ORTHOSTATIC HYPOTENSION Current Active Problems Hypotension (Acute) UTI (urinary tract infection) (Acute) Condition: Stable - Instructions Diet, Activity, Other Instructions: You were in the hospital due to low blood pressure and dehydration. We also found bacteria in your urine. Please follow up with your primary care provider within 1 week. Please follow up with Dr. Vinson (Electrical Calibrator) within 1 week. A prescription for a blood pressure cuff has been sent to your pharmacy. Measure your blood pressures daily. If the top number of your blood pressure drops below 100 or goes over 140 or if you have symptoms please let your doctor know. Dr. Vinson will evaluate your blood pressure medications as well. Please continue to drink plenty of fluids. Start taking: -Take 1 day of bactrim by mouth to complete your antibiotic course for the bacteria in your urine. Continue taking: -Combigan eye drops Stop taking: -Acetazolamide 250 mg by mouth three times per day -Bystolic 5 mg by mouth daily If you have chest pain, shortness of breath, or any new symptoms, please come back to the hospital immediately. Referrals: Kumar Vinson MD [Staff Physician] - Erna Rocha MD [Primary Care Provider] - Disposition: HOME - Home Medications Comprehensive Discharge Medication List: Ambulatory Orders Acetazolamide [Diamox -] 250 mg PO TID 10/25/16 Brimonidine Tartrate/Timolol [Combigan 0.2%-0.5% Eye Drops] 10 ml OP DAILY 10/25 Miscellaneous Medical Supply BLOOD PRESSURE CUFF [Outpatient Order] 1 each ASDIR #1 mis 10/25/16 Nebivolol [Bystolic -] 5 mg PO DAILY 10/25/16 This patient is new to me today: Yes Date on this admission: 10/25/16 Emergency Visit: No Critical Care patient: No - Discharge Referral Referred to [facility] No
[2016-10-25 18:33] VITALS: PULSE 67; TEMP 97.8
[2016-10-25 19:03] VITALS: BP 146/76
--- NOTE | 2016-10-30 13:37 | EKG ---
Test Reason : Blood Pressure : / mmHG Vent. Rate : 055 BPM Atrial Rate : 055 BPM P-R Int : 220 ms QRS Dur : 132 ms QT Int : 470 ms P-R-T Axes : 065 -57 073 degrees QTc Int : 449 ms SINUS BRADYCARDIA WITH 1ST DEGREE A-V BLOCK LEFT AXIS DEVIATION COMPLETE LEFT BUNDLE BRANCH BLOCK ABNORMAL ECG WHEN COMPARED WITH ECG OF 09-DEC-2010 14:11, PREMATURE ATRIAL COMPLEXES ARE NO LONGER PRESENT ID INTERVAL HAS INCREASED VENT. RATE HAS DECREASED BY 40 BPM QT HAS SHORTENED REPEAT EKG IF CLINICALLY INDICATED Confirmed by JORDY RUTHERFORD MD ([id number] on 10/30/2016 1:36:57 PM Referred By: Confirmed By:JORDY RUTHERFORD MD
== END 2016-10-25 18:48 | disposition home or self-care (01) ==
LOC: JER 15:15 → INTOOBSV 21:32 → JERBED 21:32 → J4W 23:47
PROVIDERS: ADMIT Internal Medicine; ATTEND Internal Medicine
PROC: 3E03329 Introduction of Other Anti-infective into Peripheral Vein, Percutaneous Approach (ICD-10-PCS; principal; 2016-10-24)
PROC: 3E033GC Introduction of Other Therapeutic Substance into Peripheral Vein, Percutaneous Approach (ICD-10-PCS; 2016-10-24)
PROC: 3E0337Z Introduction of Electrolytic and Water Balance Substance into Peripheral Vein, Percutaneous Approach (ICD-10-PCS; 2016-10-24)
PROC: 3E013GC Introduction of Other Therapeutic Substance into Subcutaneous Tissue, Percutaneous Approach (ICD-10-PCS; 2016-10-24)
DX: I95.1 Orthostatic hypotension (principal); N39.0 Urinary tract infection, site not specified; R73.03 Prediabetes; I10 Essential (primary) hypertension; H40.9 Unspecified glaucoma; Z88.6 Allergy status to analgesic agent; R00.1 Bradycardia, unspecified; N17.9 Acute kidney failure, unspecified; R73.9 Hyperglycemia, unspecified
CPT/HCPCS: 36415; 71010-TC; 80048; 80053; 80061; 81003; 81015; 82533; 82550; 83036; 83605; 83721; 84443; 84484; 85025; 86618; 93005; 93010; 93306-TC; 93880-TC; 99284-25; G0378; J1644

== ENCOUNTER 2017-01-11 14:27 | Inpatient (IN) | payer OTHER ==
[2017-01-11 14:37] VITALS: BMI 20.9
--- NOTE | 2017-01-11 14:54 | PDOC ---
History of Present Illness - General History Source: Patient, Family Exam Limitations: No Limitations - History of Present Illness Initial Comments: 01/11/17 15:20 The patient is a 86 year old female, with a significant past medical history of hypertension and glaucoma, who presents to the emergency department complaining of lightheadedness since earlier this afternoon. Patient reports she felt lightheaded almost as if she was going to pass out, and had to hold onto the wall so she wouldnt fall. Patient denies any syncope, dizziness, trauma, or changes in vision. Patient reports taking her blood pressure due to her lightheadedness, and states it was initially 70/50. She reports drinking a glass of saltwater and feel better. Patient states when she rechecked her blood pressure it was 120/68. Patient denies any fever, chills, cough, or headache. She denies any chest pain, shortness of breath, diaphoresis, or palpitations. She denies any abdominal pain, nausea, vomiting, diarrhea, or constipation. She denies any dysuria, hematuria, frequency, or urgency. Allergies: Aspirin Past Surgical History: Cholecystectomy Social History: Non smoker. No ETOH or recreational drug use. PCP: Dr. Rocha Social Sciences Research Scientist: Dr. Vinson <Janiya Pate - Last Filed: 01/11/17 15:19> <Kristin Nolan - Last Filed: 01/11/17 17:20> - General Chief Complaint: Lightheaded Stated Complaint: WEAKNESS,PAIN Time Seen by Provider: 01/11/17 14:53 Past History <Janiya Pate - Last Filed: 01/11/17 15:19> - Past Medical History HTN: Yes Other medical history: left eye problems - Immunization History Immunization Up to Date: Yes - Suicide/Smoking/Psychosocial Hx Smoking History: Never smoked Information on smoking cessation initiated: No Hx Alcohol Use: No Drug/Substance Use Hx: No Substance Use Type: None <Kristin Nolan - Last Filed: 01/11/17 17:20> - Past Medical History Allergies/Adverse Reactions: Allergies Allergy/AdvReac Type Severity Reaction Status Date / Time aspirin Allergy Verified 01/11/17 14:31 Home Medications: Ambulatory Orders Brimonidine Tartrate/Timolol [Combigan 0.2%-0.5% Eye Drops] 10 ml OP DAILY 10/25 Acetazolamide [Diamox -] 250 mg PO TID 01/11/17 Review of Systems - Review of Systems Able to Perform ROS?: Yes Comments:: 01/11/17 15:20 GENERAL/CONSTITUTIONAL: No fever or chills. No weakness. HEAD, EYES, EARS, NOSE AND THROAT: No change in vision. No ear pain or discharge. No sore throat. CARDIOVASCULAR: No chest pain or shortness of breath. RESPIRATORY: No cough, wheezing, or hemoptysis. GASTROINTESTINAL: No nausea, vomiting, diarrhea or constipation. GENITOURINARY: No dysuria, frequency, or change in urination. MUSCULOSKELETAL: No joint or muscle swelling or pain. No neck or back pain. SKIN: No rash NEUROLOGIC: Yes lightheadedness. No headache, vertigo, loss of consciousness, or change in strength/sensation. ENDOCRINE: No increased thirst. No abnormal weight change. HEMATOLOGIC/LYMPHATIC: No anemia, easy bleeding, or history of blood clots. ALLERGIC/IMMUNOLOGIC: No hives or skin allergy. <Janiya Pate - Last Filed: 01/11/17 15:19> *Physical Exam - Vital Signs Last Vital Signs Temp Pulse Resp BP Pulse Ox 97.4 F L 45 L 18 109/40 100 01/11/17 14:33 01/11/17 14:33 01/11/17 14:33 01/11/17 14:33 01/11/17 14:33 - Physical Exam Comments: 01/11/17 15:20 GENERAL: Awake, alert, and fully oriented, in no acute distress HEAD: No signs of trauma EYES: PERRLA, EOMI, sclera anicteric, conjunctiva clear ENT: Auricles normal inspection, hearing grossly normal, nares patent, oropharynx clear without exudates. Moist mucosa NECK: Normal ROM, supple, no lymphadenopathy, JVD, or masses LUNGS: Breath sounds equal, clear to auscultation bilaterally. No wheezes, and no crackles HEART: Bradycardic. Regular rhythm, normal S1 and S2, no murmurs, rubs or gallops ABDOMEN: Soft, nontender, normoactive bowel sounds. No guarding, no rebound. No masses EXTREMITIES: Normal range of motion, no edema. No clubbing or cyanosis. No cords, erythema, or tenderness VASCULAR: DP/PT pulse 2+ and symmetric. NEUROLOGICAL: Cranial nerves II through XII grossly intact. Normal speech, normal gait SKIN: Warm, Dry, normal turgor, no rashes or lesions noted. <Janiya Pate - Last Filed: 01/11/17 15:19> - Vital Signs Last Vital Signs Temp Pulse Resp BP Pulse Ox 97.4 F L 45 L 18 109/40 100 01/11/17 14:33 01/11/17 14:33 01/11/17 14:33 01/11/17 14:33 01/11/17 14:33 <Kristin Nolan - Last Filed: 01/11/17 17:20> Heart Score/ECG Review - ECG Intrepretation Comment:: 01/11/17 16:50 sinus gladis at 47 w 1st degree av block, lbbb, no acute changes, abnl ekg <Kristin Nolan - Last Filed: 01/11/17 17:20> ED Treatment Course - LABORATORY CBC & Chemistry Diagram: 01/11/17 15:30 01/11/17 15:10 <Kristin Nolan - Last Filed: 01/11/17 17:20> Medical Decision Making - Medical Decision Making 01/11/17 15:21 First call placed to Dr. Vinson at 15:09. Awaiting call back. Case discussed with Dr. Vinson at 15:12. <Janiya Pate - Last Filed: 01/11/17 15:19> - Medical Decision Making 01/11/17 16:44 a/p: 86yo female with near syncope -bradycardia on ekg -was hypotensive at home, improved with salt water PO -will put on manager e learning -will discuss with Dr. Vinson -will check labs, and poss obs 01/11/17 16:[address] Vinson who will see the patient in consult. 01/11/17 16:50 microblog sent to hospitalist 01/11/17 17:17 discussed case with Anabell Swan who accepts pt to obs. <Kristin Nolan - Last Filed: 01/11/17 17:20> *DC/Admit/Observation/Transfer - Attestations Scribe Attestion: 01/11/17 15:20 Documentation prepared by Janiya Pate, acting as medical billing assistant for Kristin Nolan DO. <Janiya Pate - Last Filed: 01/11/17 15:19> - Discharge Dispostion Admit: Yes - Attestations Physician Attestion: 01/11/17 17:20 I, Dr. Kristin Nolan DO, attest that this document has been prepared under my direction and personally reviewed by me in its entirety. I further attest, that it accurately reflects all work, treatment, procedures and medical decision -making performed by me. <Kristin Nolan - Last Filed: 01/11/17 17:20> Diagnosis at time of Disposition: Bradycardia, Pre-syncope - Discharge Dispostion Condition at time of disposition: Stable - Referrals Referrals: Erna Rocha MD [Primary Care Provider] -
[2017-01-11 15:47] LABS: BASOPHIL 0.7 % (0-2.0); EOSINOPHIL 0.7 % (0-4.5); MCH 33.1 pg (25.7-33.7); MCHC 33.1 g/dl (32.0-36.0); NEUTROPHILS 82.5 % (42.8-82.8); PLATELET COUNT 218 K/MM3 (134-434); RDW 14.5 % (11.6-15.6); WHITE BLOOD COUNT 7.2 K/mm3 (4.0-10.0)
[2017-01-11 16:11] LABS: INR 0.96 (0.82-1.09); PROTHROMBIN TIME (PATIENT) 10.9 SEC (9.98-11.88)
[2017-01-11 16:14] LABS: ACTIVATED PTT 27.4 SECONDS (26.9-34.4)
[2017-01-11 16:30] LABS: ALBUMIN 3.4 g/dl (3.4-5.0); ANION GAP 8 (8-16); BILIRUBIN,TOTAL 0.5 mg/dL (0.2-1.0); CALCIUM 8.2 mg/dL (8.5-10.1); CO2 21 mmol/L (21-32); CREATININE 1.2 mg/dL (0.55-1.02); GLUCOSE,RANDOM 166 mg/dL (74-106); MAGNESIUM 2.3 mg/dL (1.8-2.4); SGOT/AST 15 U/L (15-37); SGPT/ALT 11 U/L (12-78); TOT PROT 6.5 g/dl (6.4-8.2)
[2017-01-11 16:33] LABS: ALK PHOS 74 U/L (45-117); CPK 52 IU/L (26-192); TROPONIN I < 0.02 ng/ml (0.00-0.05)
--- NOTE | 2017-01-11 17:16 | HP ---
CHIEF COMPLAINT: Lightheadedness PCP: Dr. Rocha Mechanical Assembly Technician: Dr. Vinson HISTORY OF PRESENT ILLNESS: 86 year-old female with a PMH significant for HTN, bradycardia, first degree heart block, LBBB, and glaucoma who presented to the ED with a complaint of lightheadedness. Patient states she sat down to have her lunch of miso soup and to watch some TV. When she stood up she felt lightheaded, like she was in a plane. She went into the bathroom and had a very large bowel movement. It was brown, well-formed stool, no diarrhea, no blood, no melena. When she stood up from the toilet she felt even more lightheaded and went to lay down. She called her son her brought her to the hospital. Patient has been in her usual state of health which she describes as active, has spent the last several days cleaning. Patient did not have breakfast earlier in the day and only a small amount of susan smita and the miso soup. Patient denies chest pain, palpitations, SOB, SEWELL , orthopnea, or lower extremity edema. She denies headache, fever, sweats, chills. She denies n/v/d/c. ER course was notable for: (1) BP 78/59, HR 45 (2) ECG siny gladis @ 47 with first degree HB, LBBB (3) orthostatics negative Recent Travel: No PAST MEDICAL HISTORY: Hypertension Bradycardia First degree heart melvi LBBB Glaucoma PAST SURGICAL HISTORY: Cholecystectomy Cataracts left eye Social History: Smoking: no Alcohol: no Drugs: no Family History: Allergies aspirin Allergy (Verified 01/11/17 14:31) HOME MEDICATIONS: Medication Instructions Recorded Brimonidine Tartrate/Timolol 10 ml OP DAILY 10/25/16 [Combigan 0.2%-0.5% Eye Drops] Acetazolamide [Diamox -] 250 mg PO TID 01/11/17 REVIEW OF SYSTEMS CONSTITUTIONAL: Absent: fever, chills, diaphoresis, generalized weakness, malaise, loss of appetite, weight change HEENT: Absent: rhinorrhea, nasal congestion, throat pain, throat swelling, difficulty swallowing, mouth swelling, ear pain, eye pain, visual changes CARDIOVASCULAR: Absent: chest pain, syncope, palpitations, irregular heart rate, lightheadedness , peripheral edema RESPIRATORY: Absent: cough, shortness of breath, dyspnea with exertion, orthopnea, wheezing, stridor, hemoptysis GASTROINTESTINAL: Absent: abdominal pain, abdominal distension, nausea, vomiting, diarrhea, constipation, melena, hematochezia GENITOURINARY: Absent: dysuria, frequency, urgency, hesitancy, hematuria, flank pain, genital pain MUSCULOSKELETAL: Absent: myalgia, arthralgia, joint swelling, back pain, neck pain SKIN: Absent: rash, itching, pallor HEMATOLOGIC/IMMUNOLOGIC: Absent: easy bleeding, easy bruising, lymphadenopathy, frequent infections ENDOCRINE: Absent: unexplained weight gain, unexplained weight loss, heat intolerance, cold intolerance NEUROLOGIC: Present: lightheadedness Absent: headache, focal weakness or paresthesias, dizziness, unsteady gait, seizure, mental status changes, bladder or bowel incontinence PSYCHIATRIC: Absent: anxiety, depression, suicidal or homicidal ideation, hallucinations. PHYSICAL EXAMINATION Vital Signs - 24 hr 01/11/17 01/11/17 14:33 15:53 Temperature 97.4 F L Pulse Rate 45 L Pulse Rate [ 49 L Radial] Respiratory 18 12 Rate Blood Pressure 109/40 Blood Pressure 115/60 [Right Arm] O2 Sat by Pulse 100 100 Oximetry (%) GENERAL: Awake, alert, and fully oriented, in no acute distress. HEAD: Normal with no signs of trauma. EYES: Pupils equal, round and reactive to light, extraocular movements intact, sclera anicteric, conjunctiva clear. No ptosis EARS, NOSE, THROAT: Ears normal, nares patent, oropharynx clear without exudates. Moist mucous membranes. NECK: Normal range of motion, supple without lymphadenopathy, JVD, or masses. LUNGS: Breath sounds equal, clear to auscultation bilaterally. No wheezes, and no crackles. No accessory muscle use. HEART: Regular rate and rhythm, normal S1 and S2 without murmur, rub or gallop. ABDOMEN: Soft, nontender, not distended, normoactive bowel sounds, no guarding, no rebound, no masses. No hepatomegaly or splenomegaly. MUSCULOSKELETAL: Normal range of motion at all joints. No bony deformities or tenderness. No CVA tenderness. UPPER EXTREMITIES: 2+ pulses, warm, well-perfused. No cyanosis. No clubbing. No peripheral edema. LOWER EXTREMITIES: 2+ pulses, warm, well-perfused. No calf tenderness. No peripheral edema. NEUROLOGICAL: Cranial nerves II-XII intact. Normal speech. Gait not observed. Laboratory Results - last 24 hr 01/11/17 01/11/17 01/11/17 15:10 15:10 15:30 WBC 7.2 D RBC 3.89 Hgb 12.9 Hct 38.9 MCV 100.0 H MCH 33.1 MCHC 33.1 RDW 14.5 Plt Count 218 MPV 8.0 Neutrophils % 82.5 Lymphocytes % 11.9 D Monocytes % 4.2 Eosinophils % 0.7 Basophils % 0.7 PT with INR 10.90 INR 0.96 PTT (Actin FS) 27.4 Sodium 139 Potassium 3.4 L Chloride 110 H Carbon Dioxide 21 Anion Gap 8 BUN 21 H Creatinine 1.2 H Creat Clearance w eGFR 42.80 Random Glucose 166 H D Calcium 8.2 L Magnesium 2.3 Total Bilirubin 0.5 AST 15 D ALT 11 L D Alkaline Phosphatase 74 Creatine Kinase 52 Troponin I < 0.02 B-Natriuretic Peptide Total Protein 6.5 Albumin 3.4 01/11/17 15:30 WBC RBC Hgb Hct MCV MCH MCHC RDW Plt Count MPV Neutrophils % Lymphocytes % Monocytes % Eosinophils % Basophils % PT with INR INR PTT (Actin FS) Sodium Potassium Chloride Carbon Dioxide Anion Gap BUN Creatinine Creat Clearance w eGFR Random Glucose Calcium Magnesium Total Bilirubin AST ALT Alkaline Phosphatase Creatine Kinase Troponin I B-Natriuretic Peptide 426.99 Total Protein Albumin ASSESSMENT/PLAN: 86 year-old female with a PMH significant for HTN, bradycardia, first degree heart block, LBBB, and glaucoma, who presented to the ED with lightheadedness, hypotension, and bradycardia. Near syncope Bradycardia --bradycardic to 45 and hypotensive on admission, not orthostatic --ECG shows 1st degree HB and LBBB seen previously during September 2016 admission --09/2016 echo: LV normal, RV normal, trace MR, trace TR --09/2016 US carotids: minimal atherosclerotic disease; no hemodynamically significant stenosis --first troponin negative, two pending --serial ECGs --telemetry monitoring --hold juan josé blocking agents --hold acetazolamide --very gentle fluids --Dr. Vinson cardiology consult pending Hypokalemia --repleted F/E/N Fluids: NS @ 42mL/hr total x 1 L only Electrolytes: replete as indicated Nutrition: low sodium DVT prophylaxis: subq heparin Dispo: requires continued observation. Full code. Visit type - Emergency Visit Emergency Visit: Yes Care time: The patient presented to the Emergency Department on the above date and was hospitalized for further evaluation of their emergent condition. - New Patient This patient is new to me today: Yes Date on this admission: 01/11/17 - Critical Care Critical Care patient: No
[2017-01-11] MEDS ORDERED: POTASSIUM CHLORIDE TABS 20 MEQ TABLET.ER (FP) PO ONE (18:17)
[2017-01-11] MEDS: POTASSIUM CHLORIDE TABS 20 MEQ TABLET.ER (FP) PO SCH ×2 (18:24→23:35)
[2017-01-11] MEDS ORDERED: SODIUM CHLORIDE 1,000 ML IV SCH (19:30)
[2017-01-11] MEDS: HEPARIN NA (PORCINE) 5,000 UNITS/ML 1ML VIAL SQ SCH (23:10)
[2017-01-11] MEDS: BRIMONIDINE TARTRATE 0.2% OPHTHALMIC 5 ML BOTTLE OU SCH (23:22)
[2017-01-11] MEDS: TIMOLOL 0.5% OPHTHALMIC SOL 5 ML BOTTLE OU SCH (23:22)
[2017-01-11 23:38] LABS: URINE APPEARANCE CLEAR; URINE BILIRUBIN NEGATIVE (NEGATIVE); URINE BLOOD NEGATIVE (NEGATIVE); URINE COLOR LTYELLOW; URINE GLUCOSE (UA) NEGATIVE (NEGATIVE); URINE KETONE NEGATIVE (NEGATIVE); URINE NITRITE NEGATIVE (NEGATIVE); URINE PROTEIN NEGATIVE (NEGATIVE); URINE UROBILINOGEN NEGATIVE mg/dL (0.2-1.0)
[2017-01-12 07:39] LABS: BASOPHIL 0.7 % (0-2.0); EOSINOPHIL 1.2 % (0-4.5); MCH 32.1 pg (25.7-33.7); MCHC 32.1 g/dl (32.0-36.0); MEAN CELL VOLUME 100.1 fl (80-96); MEAN PLT VOLUME 8.4 fl (7.5-11.1); NEUTROPHILS 75.3 % (42.8-82.8); PLATELET COUNT 226 K/MM3 (134-434); RDW 14.4 % (11.6-15.6)
[2017-01-12 08:18] LABS: ALBUMIN 3.9 g/dl (3.4-5.0); ALK PHOS 84 U/L (45-117); ANION GAP 7 (8-16); BILIRUBIN,TOTAL 0.5 mg/dL (0.2-1.0); CALCIUM 9.3 mg/dL (8.5-10.1); CO2 20 mmol/L (21-32); CREATININE 0.9 mg/dL (0.55-1.02); GLUCOSE,RANDOM 83 mg/dL (74-106); MAGNESIUM 2.5 mg/dL (1.8-2.4); PHOSPHOROUS 3.1 mg/dL (2.5-4.9); SGOT/AST 16 U/L (15-37); SGPT/ALT 13 U/L (12-78); TOT PROT 7.5 g/dl (6.4-8.2)
--- NOTE | 2017-01-12 08:22 | CONSULT ---
Consult - text type - Consultation Consultation Note: Cardiology 86 yr old with stable medical state, admitted with post defecation syncope; got up herself, called the son and came to ED, with mild bradycardia and hypotension. 78/58, 45/minute. She denies any cardiac symptoms generally; maybe travel associated symptoms; never had a syncope. Today, denies any symptoms. social: NA FH: CAD allergy: ? ASA Op: gall bladder, C section, cataract PMH: NA PE: vitals stable normal cardio-pulmonary exam abdomen soft no leg edema Impression: syncope, most likely vasovagal telemetry NSR, occ HR drops to 42/minute no evidence of UT or CHF patient agreeable for pacemaker implant Rec: Observe thyroid profile EP evaluation echocardiogram Pacemaker implant, if no reversible cause, and bradycardiac episodes.
[2017-01-12 08:29] LABS: CPK 56 IU/L (26-192); TROPONIN I < 0.02 ng/ml (0.00-0.05)
[2017-01-12] MEDS: HEPARIN NA (PORCINE) 5,000 UNITS/ML 1ML VIAL SQ SCH ×2 (09:26→22:11)
[2017-01-12] MEDS: TIMOLOL 0.5% OPHTHALMIC SOL 5 ML BOTTLE OU SCH ×2 (09:27→22:11)
[2017-01-12] MEDS: BRIMONIDINE TARTRATE 0.2% OPHTHALMIC 5 ML BOTTLE OU SCH ×2 (09:27→22:10)
[2017-01-12] MEDS ORDERED: PATIENT'S OWN MEDICATION (NON-FORMULARY) (Brimonidine Tartrate/Timolol [Combigan 0.2%-0.5% OP SCH (10:00)
--- NOTE | 2017-01-12 11:05 | EKG ---
Test Reason : Blood Pressure : / mmHG Vent. Rate : 057 BPM Atrial Rate : 057 BPM P-R Int : 202 ms QRS Dur : 132 ms QT Int : 440 ms P-R-T Axes : 067 -56 088 degrees QTc Int : 428 ms SINUS BRADYCARDIA WITH PREMATURE ATRIAL COMPLEXES WITH 1ST DEGREE A-V BLOCK LEFT AXIS DEVIATION LEFT BUNDLE BRANCH BLOCK ABNORMAL ECG WHEN COMPARED WITH ECG OF 11-JAN-2017 14:45, [place] INTERVAL HAS DECREASED Confirmed by RENETTA LAIRD MD ([id number]) on 01/12/2017 11:04:53 AM Referred By: Khanh CHRISTIAN Confirmed By:RENETTA LAIRD MD
[2017-01-12 11:49] LABS: URINE LEUK ESTERASE 2+ (NEGATIVE)
--- NOTE | 2017-01-12 12:48 | EKG ---
Test Reason : Blood Pressure : / mmHG Vent. Rate : 047 BPM Atrial Rate : 047 BPM P-R Int : 248 ms QRS Dur : 136 ms QT Int : 510 ms P-R-T Axes : 082 -57 090 degrees QTc Int : 451 ms SINUS BRADYCARDIA WITH 1ST DEGREE A-V BLOCK WITH PREMATURE SUPRAVENTRICULAR COMPLEXES LEFT AXIS DEVIATION LEFT BUNDLE BRANCH BLOCK ABNORMAL ECG WHEN COMPARED WITH ECG OF 25-OCT-2016 12:27, NO SIGNIFICANT CHANGE WAS FOUND Confirmed by RENETTA LAIRD MD ([id number]) on 01/12/2017 12:47:51 PM Referred By: Confirmed By:RENETTA LAIRD MD
--- NOTE | 2017-01-12 16:42 | CON.CARD ---
Consult Consult Specialty:: Cardiac Electrophysiology Referred by:: Dr. Arora Reason for Consultation:: Bradycardia - History of Present Illness Chief Complaint: Dizziness History of Present Illness: Ms. Tellez is a pleasant 86 year old female with pmh LBBB, glaucoma who presented with dizziness after going to the bathroom. She was found to be hypotensive and bradycardic. She has been treated with IVF and monitored on telemetry where monitoring has demonstrated a persistent LBBB with bradycardia in the 40-60's. According to vital logs, her blood pressure has been mostly maintained. Cardiac enzymes have been negative. The patient states that she was having an intense abdominal pain and then had gone to the bathroom to defecate. She became dizzy afterwards. The patient has been walking around without symptoms. She denies any recurrent dizziness. She denies any similar symptoms before this event. - History Source History Provided By: Patient, Family Member Limitations to Obtaining History: No Limitations - Past Surgical History Additional Surgical History: PAST SURGICAL HISTORY: Cholecystectomy. C- section. Cataracts left eye - Alcohol/Substance Use Hx Alcohol Use: No - Smoking History Smoking history: Never smoked Home Medications - Allergies Allergies/Adverse Reactions: Allergies Allergy/AdvReac Type Severity Reaction Status Date / Time aspirin Allergy Verified 01/11/17 17:52 - Home Medications Home Medications: Ambulatory Orders Brimonidine Tartrate/Timolol [Combigan 0.2%-0.5% Eye Drops] 10 ml OP DAILY 10/25 Acetazolamide [Diamox -] 250 mg PO TID 01/11/17 Family Disease History - Family Disease History Family History: Unremarkable Review of Systems - Review of Systems Constitutional: denies: Chills, Fever HENT: denies: Epistaxis Neck: denies: Pain on Movement Cardiovascular: denies: Chest Pain, Edema, Palpitations, Shortness of Breath Respiratory: denies: Hemoptysis, SOB, SOB on Exertion, Wheezing Gastrointestinal: reports: Abdominal Pain. denies: Diarrhea, Rectal Bleeding, Vomiting Genitourinary: denies: Dysuria Integumentary: denies: Erythema Neurological: reports: Dizziness Endocrine: denies: Excessive Sweating, Flushing Hematology/Lymphatic: denies: Easily Bruised Vital Signs: Vital Signs Temperature 98.0 F 01/12/17 14:00 Pulse Rate 65 01/12/17 14:00 Respiratory Rate 18 01/12/17 10:00 Blood Pressure 151/73 01/12/17 14:00 O2 Sat by Pulse Oximetry (%) 100 01/12/17 09:00 Constitutional: Yes: Well Nourished HENT: Yes: WNL Neck: Yes: WNL Respiratory: Yes: WNL Gastrointestinal: Yes: WNL Cardiovascular: Yes: Regular Rate and Rhythm JVD: No PMI: Non-Displaced Heart Sounds: Yes: S1, S2 Edema: No Neurological: Yes: Alert - Other Data Labs, Other Data: INR, PTT INR 0.96 (0.82-1.09) 01/11/17 15:10 Imaging - Results EKG: Image Reviewed Problem List - Problems (1) Bradycardia Code(s): R00.1 - BRADYCARDIA, UNSPECIFIED (2) Near syncope Code(s): R55 - SYNCOPE AND COLLAPSE Assessment/Plan 01/12/17: JVD EPS: pt with an underlying LBBB and prolonged AV delay. no evidence of high degree heart block appreciated on monitoring or ekg. pt is walking around right now, asymptomatic with rates in the 60's. telemetry and ekg reviewed. symptoms appear to be vasovagal. no recurrence. am concerned whether pt is able to augment an appropriate heart rate response to exercise. she is taking glaucoma eye drops with beta-zion effect. although these may have some degree of systemic effect, the fact that she needs it for her glaucoma outweighs the risks of using it. unless an alternative agent is available, i would recommend continuing present therapy. no indication for ppm therapy at this time. discussed case with Dr. Arora. cardiac enzymes negative. - no indication for ppm therapy at this time. pt does have a baseline prolonged av delay and lbbb and may come to need a ppm in the future. - keep k 4-4.5, mg 2-2.5 - no av juan josé blocking agents (except glaucoma meds as described above) - recommend ETT to evaluate for chronotropic response to exercise (although pt denies sx at baseline) - care as per cardiology Thank you for allowing me to participate in the care of this patient. Please call with any questions. Available upon request. Humphrey Tipton MD [phone]
--- NOTE | 2017-01-12 20:45 | PN ---
Physical Exam: SUBJECTIVE: Patient seen and examined at bedside. Son present. Ambulating around room and in hallway. Feels well. No further episodes of lightheadedness. OBJECTIVE: Vital Signs Period Temp Pulse Resp BP Sys/Hassan Pulse Ox Last 24 Hr 98.0 F 65-72 20 123-151/69-73 GENERAL: The patient is awake, alert, and fully oriented, in no acute distress. LUNGS: Breath sounds equal, clear to auscultation bilaterally, no wheezes, no crackles, no accessory muscle use. HEART: Regular rate and rhythm, S1, S2 without murmur, rub or gallop. ABDOMEN: Soft, nontender, nondistended, normoactive bowel sounds, no guarding, no rebound, no hepatosplenomegaly, no masses. EXTREMITIES: 2+ pulses, warm, well-perfused, no edema. NEUROLOGICAL: Cranial nerves II through XII grossly intact. Normal speech, steady gait. Active Medications Generic Name Dose Route Start Last Admin Trade Name Freq PRN Reason Stop Dose Admin Brimonidine Tartrate 1 drop 01/11/17 22:00 01/12/17 09:27 Alphagan 0.2% - OU 1 drop BID BAN Administration Heparin Sodium (Porcine) 5,000 unit 01/11/17 22:00 01/12/17 09:26 Heparin - SQ Not Given BID BAN Timolol Maleate 1 drop 01/11/17 22:00 01/12/17 09:27 Timoptic 0.5% OU 1 drop BID BAN Administration ASSESSMENT/PLAN 86 year-old female with a PMH significant for HTN, bradycardia, first degree heart block, LBBB, and glaucoma, who presented to the ED with lightheadedness, hypotension, and bradycardia. Near syncope Bradycardia --possibly vasovagal episode from lack of PO intake, low volume state --HR has improved to 50-60s and BP has improved to MAP>65 following 1L fluid resuscitation and holding acetazolamide --ECG shows 1st degree HB and LBBB seen previously during September 2016 admission --09/2016 echo: LV normal, RV normal, trace MR, trace TR --09/2016 US carotids: minimal atherosclerotic disease; no hemodynamically significant stenosis --serial troponins negative --seen and evaluated by cardiology, no indication for PPM at this time --no AV juan josé blocking agents except for glaucoma eyedrops --needs exercise treadmill test to evaluate chronotropic response to exercise --cardiology following Glaucoma --continue brimonidine and timolol --hold acetazolamide Hypokalemia, resolved F/E/N Fluids: PO intake adequate Electrolytes: replete as indicated Nutrition: low sodium DVT prophylaxis: subq heparin Physical therapy evaluation Dispo: continues to require inpatient care. Full Code. Visit type - Emergency Visit Emergency Visit: Yes ED Registration Date: 01/12/17 Care time: The patient presented to the Emergency Department on the above date and was hospitalized for further evaluation of their emergent condition. - New Patient This patient is new to me today: No - Critical Care Critical Care patient: No
[2017-01-13 07:56] LABS: BASOPHIL 0.7 % (0-2.0); EOSINOPHIL 1.8 % (0-4.5); MCH 32.6 pg (25.7-33.7); MCHC 32.7 g/dl (32.0-36.0); MEAN CELL VOLUME 99.8 fl (80-96); NEUTROPHILS 69.1 % (42.8-82.8); PLATELET COUNT 183 K/MM3 (134-434); RDW 14.3 % (11.6-15.6); WHITE BLOOD COUNT 8.6 K/mm3 (4.0-10.0)
[2017-01-13 08:23] LABS: ALBUMIN 3.1 g/dl (3.4-5.0); ANION GAP 9 (8-16); CO2 19 mmol/L (21-32); MAGNESIUM 2.4 mg/dL (1.8-2.4)
[2017-01-13 08:29] LABS: ALK PHOS 72 U/L (45-117); BILIRUBIN,TOTAL 0.3 mg/dL (0.2-1.0); CHOLESTEROL 244 mg/dL (50-200); CREATININE 1.3 mg/dL (0.55-1.02); GLUCOSE,RANDOM 79 mg/dL (74-106); SGOT/AST 30 U/L (15-37); SGPT/ALT 25 U/L (12-78)
[2017-01-13] MEDS: TIMOLOL 0.5% OPHTHALMIC SOL 5 ML BOTTLE OU SCH ×2 (09:04→22:35)
[2017-01-13] MEDS: BRIMONIDINE TARTRATE 0.2% OPHTHALMIC 5 ML BOTTLE OU SCH ×2 (09:05→22:35)
[2017-01-13] MEDS: HEPARIN NA (PORCINE) 5,000 UNITS/ML 1ML VIAL SQ SCH ×2 (09:06→22:33)
--- NOTE | 2017-01-13 18:39 | PN ---
Progress Note (short form) - Note Progress Note: Subjective: The patient was seen and examined at the bedside, she states she feels good and has been ambulating around the unit. She denies any chest pain, palpitations at this time. For ETT tomorrow Current Medications Generic Name Dose Route Start Last Admin Trade Name Rossy PRN Reason Stop Dose Admin Atorvastatin Calcium 10 mg 01/13/17 22:00 Lipitor - PO HS BAN Brimonidine Tartrate 1 drop 01/11/17 22:00 01/13/17 09:05 Alphagan 0.2% - OU 1 drop BID BAN Administration Heparin Sodium (Porcine) 5,000 unit 01/11/17 22:00 01/13/17 09:06 Heparin - SQ 5,000 unit BID BAN Administration Timolol Maleate 1 drop 01/11/17 22:00 01/13/17 09:04 Timoptic 0.5% OU 1 drop BID BAN Administration Objective: Vital Signs Period Temp Pulse Resp BP Sys/Hassan Pulse Ox Last 24 Hr 97 F-98.9 F 61-74 18-20 103-123/49-72 100-100 Physical Exam: General: NAD, A&Ox3 Lungs: CTA bilaterally Heart: RRR, S1S2 Abd: Soft, non-tender, non-distended. Normoactive bowel sounds Ext: Warm, well-perfused. 2+ DP/PT bilaterally Neuro: CN 2-12 intact CBCD WBC 8.6 K/mm3 (4.0-10.0) 01/13/17 05:15 RBC 3.71 M/mm3 (3.60-5.2) 01/13/17 05:15 Hgb 12.1 GM/dL (10.7-15.3) D 01/13/17 05:15 Hct 37.0 % (32.4-45.2) D 01/13/17 05:15 MCV 99.8 fl (80-96) H 01/13/17 05:15 MCHC 32.7 g/dl (32.0-36.0) 01/13/17 05:15 RDW 14.3 % (11.6-15.6) 01/13/17 05:15 Plt Count 183 K/MM3 (134-434) 01/13/17 05:15 MPV 8.0 fl (7.5-11.1) 01/13/17 05:15 CMP Sodium 142 mmol/L (136-145) 01/13/17 05:15 Potassium 3.9 mmol/L (3.5-5.1) 01/13/17 05:15 Chloride 114 mmol/L (98-107) H 01/13/17 05:15 Carbon Dioxide 19 mmol/L (21-32) L 01/13/17 05:15 Anion Gap 9 (8-16) 01/13/17 05:15 BUN 33 mg/dL (7-18) H D 01/13/17 05:15 Creatinine 1.3 mg/dL (0.55-1.02) H D 01/13/17 05:15 Creat Clearance w eGFR 39.02 (>60) 01/13/17 05:15 Random Glucose 79 mg/dL (74-106) 01/13/17 05:15 Calcium 8.0 mg/dL (8.5-10.1) L 01/13/17 05:15 Total Bilirubin 0.3 mg/dL (0.2-1.0) D 01/13/17 05:15 AST 30 U/L (15-37) D 01/13/17 05:15 ALT 25 U/L (12-78) D 01/13/17 05:15 Alkaline Phosphatase 72 U/L (45-117) 01/13/17 05:15 Total Protein 6.0 g/dl (6.4-8.2) L 01/13/17 05:15 Albumin 3.1 g/dl (3.4-5.0) L D 01/13/17 05:15 CARDIAC ENZYMES Creatine Kinase 56 IU/L (26-192) 01/12/17 05:18 Troponin I < 0.02 ng/ml (0.00-0.05) 01/12/17 05:18 Microbiology 01/11/17 22:55 Urine - Urine Clean Catch Urine Culture - Final NO GROWTH OBTAINED Assessment: This is an 86 year old female with PMHx of HTN, bradycardia, 1st degree av block, LBBB, glaucoma who presented to the ED with lightheadedness, hypotension, and bradycardia. Plan: 1) Cardiology: Near syncope, bradycardia - HR continues to improve off acetazolamide - No further episodes of lightheadedness - 09/2016 echo: LV normal, RV normal, trace MR, trace TR - 09/2016 US carotids: minimal atherosclerotic disease; no hemodynamically significant stenosis - EKG with 1st degree heart block - CT surgery evaluation who recommended no PPM at this time, but to have a ETT to evaluate chronotropic response to exercise - Treadmill stress test ordered - F/u ECHO - Appreciate cardiology consult Hyperlipemia - Start low dose lipitor and monitor liver function 2) : ARMOND - F/u Cr in AM. If continues to rise consider bladder ultrasound and sending urine electrolytes - Encourage po fluid intake 2) HEENT: Glaucoma - Continue brimonidine - Continue Timolol 3) F/E/N: - Sodium controlled diet - Monitor electrolytes 4) Prophylaxis: - OOB ambulating - Heparin 5,000u sq bid 5) Dispo: - Requires continued inpatient care CODE STATUS: FULL CODE Visit type - Emergency Visit Emergency Visit: Yes ED Registration Date: 01/12/17 Care time: The patient presented to the Emergency Department on the above date and was hospitalized for further evaluation of their emergent condition. - New Patient This patient is new to me today: Yes Date on this admission: 01/13/17 - Critical Care Critical Care patient: No
[2017-01-13] MEDS ORDERED: ATORVASTATIN CA 10 MG TABLET (FP) PO SCH (22:00)
[2017-01-14 07:16] LABS: ALBUMIN 3.3 g/dl (3.4-5.0); ANION GAP 10 (8-16); CALCIUM 8.3 mg/dL (8.5-10.1); CO2 20 mmol/L (21-32); GLUCOSE,RANDOM 75 mg/dL (74-106)
[2017-01-14 07:20] LABS: ALK PHOS 82 U/L (45-117); BILIRUBIN,TOTAL 0.4 mg/dL (0.2-1.0); CREATININE 1.1 mg/dL (0.55-1.02); SGOT/AST 43 U/L (15-37); SGPT/ALT 48 U/L (12-78); TOT PROT 6.7 g/dl (6.4-8.2)
--- NOTE | 2017-01-14 08:08 | CONSULT ---
Consult - text type - Consultation Consultation Note: Cardiology no symptoms PE vitals stable normal cardio-pulmonary exam abdomen soft no leg edema TSH normal subtle renal insuff 86 year old female with PMHx of HTN, bradycardia, 1st degree av block, LBBB, glaucoma who presented to the ED with lightheadedness, hypotension, and bradycardia. mild hyperlipidemia telemetry unremarkable Echocardiogram unremarkable, official report pending pacemaker not indicated, as per EP consult Rec: ETT today Discharge after ETT if normal office apt 01/17/17
[2017-01-14 08:59] VITALS: BP 106/61; PULSE 62; TEMP 98.9
[2017-01-14] MEDS: TIMOLOL 0.5% OPHTHALMIC SOL 5 ML BOTTLE OU SCH (09:12)
[2017-01-14] MEDS: BRIMONIDINE TARTRATE 0.2% OPHTHALMIC 5 ML BOTTLE OU SCH (09:24)
[2017-01-14] MEDS: HEPARIN NA (PORCINE) 5,000 UNITS/ML 1ML VIAL SQ SCH (09:24)
--- NOTE | 2017-01-14 10:14 | DS ---
Physical Exam: SUBJECTIVE: Patient seen and examined. She feels well, denies dizziness, chest pain, she is eager to go home. She is aware to f/u with cardiology thurs OBJECTIVE: Vital Signs Period Temp Pulse Resp BP Sys/Hassan Pulse Ox Last 24 Hr 98.0 F-98.9 F 62-76 18-20 103-123/55-72 99-99 PE Neuro: alert, awake, cn2 -12intact Pulm: CTAB CV: s1 s2 rrr no mrg Abd: s nt nd + bs Ext: warm, no le edema Laboratory Results - last 24 hr 01/14/17 06:30 Sodium 143 Potassium 3.7 Chloride 113 H Carbon Dioxide 20 L Anion Gap 10 BUN 37 H Creatinine 1.1 H Creat Clearance w eGFR 47.32 Random Glucose 75 Calcium 8.3 L Total Bilirubin 0.4 D AST 43 H D ALT 48 D Alkaline Phosphatase 82 Total Protein 6.7 Albumin 3.3 L HOSPITAL COURSE: Date of Admission:01/12/17 Date of Discharge: 01/14/17 Minutes to complete discharge: 37 Discharge Summary Reason For Visit: JACKIE Current Active Problems Bradycardia (Acute) Near syncope (Acute) Hospital Course: Initial Hospital Course: [place], this 86 year-old female with a PMH significant for HTN, bradycardia, first degree heart block, LBBB, and glaucoma presented to the ED with a complaint of lightheadedness. Patient sat down to have her lunch of miso soup and to watch some TV. When she stood up she felt lightheaded, like she was in a plane. She went into the bathroom and had a very large bowel movement. It was brown, well-formed stool, no diarrhea, no blood, no melena. When she stood up from the toilet she felt even more lightheaded and went to lay down. She called her son her brought her to the hospital. Patient has been in her usual state of health which she describes as active, has spent the last several days cleaning. Patient did not have breakfast earlier in the day and only a small amount of susan smita and the miso soup. Imaging: - 09/2016 echo: LV normal, RV normal, trace MR, trace TR - 09/2016 US carotids: minimal atherosclerotic disease; no hemodynamically significant stenosis Subsequent Hospital Course/Progress Note/Discharge Summaryby a/p: A: 86 year old female with PMHx of HTN, bradycardia, 1st degree av block, LBBB, glaucoma who presented to the ED with lightheadedness, hypotension, and bradycardia. Plan: 1. Near syncope, bradycardia - Acetazolamide on hold, thought could be contributing to bradycardia, will hold until follow up w/ Dr. Arora this 01/17/17 - No further lightheadedness - EKG with 1st degree heart block - TSH wnl - CT surgery evaluation who recommended no PPM at this time, but to have a ETT to evaluate chronotropic response to exercise - Discussed with Dr. Arora, pt to follow up in office this 01/17, at this time she will have ETT and stress test to eval chronotropic response 2. Hyperlipidemia - Started low dose lipitor 10mg - Monitor liver function 3. ARMOND - Improved on discharge 4. Glaucoma - Continue brimonidine - Continue Timolol Dispo: - Home with above plan and meds - Pt aware and agrees to above plan Condition: Stable - Instructions Diet, Activity, Other Instructions: Please return to the ED for any new, persistent, or worsening symptoms. Follow up with your PCP in 1 week. Keep scheduled appointment with Dr. Arora for this 01/17/17 Hold acetazolamide until you meet with Dr. Arora this Start new medication Lipitor for cholesterol Referrals: Kumar Vinson MD [Staff Physician] - 01/17/17 Erna Rocha MD [Primary Care Provider] - Disposition: HOME - Home Medications Comprehensive Discharge Medication List: Ambulatory Orders Brimonidine Tartrate/Timolol [Combigan 0.2%-0.5% Eye Drops] 10 ml OP DAILY 10/25 Atorvastatin Ca [Lipitor] 10 mg PO HS #30 tablet 01/14/17 This patient is new to me today: Yes Date on this admission: 01/14/17 Emergency Visit: Yes ED Registration Date: 01/12/17 Care time: The patient presented to the Emergency Department on the above date and was hospitalized for further evaluation of their emergent condition. Critical Care patient: No - Discharge Referral Referred to [facility] Med P.C.: No
== END 2017-01-14 13:43 | disposition home or self-care (01) | DRG 309 ==
LOC: JER 14:27 → JERBED 17:20 → J4W 22:38 → OBSVTOIN 01-12 10:44
PROVIDERS: ADMIT Internal Medicine; ATTEND Nurse Practitioner Acute Care
DX: R00.1 Bradycardia, unspecified (principal); N17.9 Acute kidney failure, unspecified; R42 Dizziness and giddiness; I44.7 Left bundle-branch block, unspecified; H40.89 Other specified glaucoma; I44.0 Atrioventricular block, first degree; I10 Essential (primary) hypertension; E87.6 Hypokalemia; E78.4 Other hyperlipidemia
CPT/HCPCS: 36415; 71010-TC; 80053; 80061; 81003; 81015; 82550; 83721; 83735; 83880; 84100; 84443; 84484; 85025; 85610; 85730; 87086; 93005; 93010; 93306-TC; 99285-25; G0378; J1644

== ENCOUNTER 2017-09-13 11:13 | Observation (INO) | payer OTHER ==
--- NOTE | 2017-09-13 12:16 | PDOC ---
History of Present Illness - General History Source: Patient Exam Limitations: No Limitations - History of Present Illness Initial Comments: 09/13/17 12:36 The patient is an 87 year old female with a significant past medical history of hypertension, sinus bradycardia, and kidney stones who presents to the emergency department for evaluation of left lower quadrant pain and blood in the toilet. The patient reports a 2 day history of left lower quadrant pain. She describes the left lower quadrant pain as moderate in nature, with no radiation. She states her stomach felt like a drum was playing right before passing a bowel movement. She reports her left lower quadrant pain began after eating a large amount at a green party 2 days ago. The patient reports seeing a large amount of blood in the toilet this morning and was unsure if it was from her bowel movement or urine, which prompted her to call 911 to visit the emergency department for further evaluation. The patient denies chest pain, shortness of breath, headache, and dizziness. Denies fevers, chills, nausea, vomiting, diarrhea, and constipation. Allergies: Aspirin, shellfish-derived Past surgical history: . Social history: No reported cigarette, alcohol, or drug use. <Ton Duarte - Last Filed: 09/13/17 18:06> <Todd Kennedy - Last Filed: 09/13/17 18:11> - General Chief Complaint: Hematuria Stated Complaint: Hematuria Time Seen by Provider: 09/13/17 12:16 Past History <Ton Duarte - Last Filed: 09/13/17 18:06> - Past Medical History Cardiac Disorders: (sinus gladis ist AVB) COPD: No HTN: Yes Other medical history: kidney stones - Immunization History Immunization Up to Date: Yes - Suicide/Smoking/Psychosocial Hx Smoking History: Never smoked Hx Alcohol Use: No Drug/Substance Use Hx: No Substance Use Type: None <Todd Kennedy - Last Filed: 09/13/17 18:11> - Past Medical History Allergies/Adverse Reactions: Allergies Allergy/AdvReac Type Severity Reaction Status Date / Time aspirin Allergy Verified 09/13/17 11:23 shellfish derived Allergy Verified 09/13/17 11:24 Home Medications: Ambulatory Orders Brimonidine Tartrate/Timolol [Combigan 0.2%-0.5% Eye Drops] 10 ml OP DAILY 10/25 acetaZOLAMIDE [Diamox -] 250 mg PO TID 09/13/17 Review of Systems - Review of Systems Able to Perform ROS?: Yes Comments:: A complete review of 10 out of 10 review of systems is taken and is negative apart from what is previously mentioned below and in the HPI. <Ton Duarte - Last Filed: 09/13/17 18:06> *Physical Exam - Vital Signs Last Vital Signs Temp Pulse Resp BP Pulse Ox 98.4 F 63 20 148/70 100 09/13/17 11:24 09/13/17 11:24 09/13/17 11:24 09/13/17 11:24 09/13/17 11:24 - Physical Exam Comments: Vitals: Triage Vital signs reviewed General Appearance: no acute distress, well nourished well developed, Head: Atraumatic, normocephalic Nose: Nares patent bilaterally. Throat: Posterior oropharynx without erythema, mucous membranes moist, Neck: Supple. Chest Wall: Nontender Cardiac: Regular rate and rhythm, no murmurs, no rubs, no gallops, Lungs: Clear to auscultation bilateral, good air movement bilaterally, Abdomen: (+)Tenderness to palpation of left lower quadrant. Soft, nondistended , normal bowel sounds. Rectal: (+)Bright red blood. Extremities: Full range of motion to all extremities, no cyanosis, clubbing, or edema Skin: Warm and dry, no rashes or lesions, no petechiae Psych: normal mood, normal affect <Ton Duarte - Last Filed: 09/13/17 18:06> - Vital Signs Last Vital Signs Temp Pulse Resp BP Pulse Ox 98.4 F 63 20 148/70 100 09/13/17 11:24 09/13/17 11:24 09/13/17 11:24 09/13/17 11:24 09/13/17 11:24 <Todd Kennedy - Last Filed: 09/13/17 18:11> ED Treatment Course - LABORATORY CBC & Chemistry Diagram: 09/13/17 12:27 09/13/17 12:27 <Ton Duarte - Last Filed: 09/13/17 18:06> - LABORATORY CBC & Chemistry Diagram: 09/13/17 12:27 09/13/17 12:27 <Todd Kennedy - Last Filed: 09/13/17 18:11> Medical Decision Making - Medical Decision Making The patient is an 87 year old female with a significant past medical history of hypertension, sinus bradycardia, and kidney stones who presents to the emergency department for evaluation of left lower quadrant pain and blood in the toilet. Plan: Labs UA CT Scan Stomach IV Case discussed with Dr. Macedo at 18:06. <Ton Duarte - Last Filed: 09/13/17 18:06> - Medical Decision Making CAT scan with evidence of colitis most likely ischemic colitis Case discussed with Dr. Macedo gastroenterology recommends Levaquin and Flagyl stool studies patient can be started on clear liquid diet We'll observe overnight under the medicine service for further management and for GI consultation. <Todd Kennedy - Last Filed: 09/13/17 18:11> *DC/Admit/Observation/Transfer - Attestations Scribe Attestion: Documentation prepared by Ton Duarte, acting as medical director of hospice for Todd Kennedy MD. <Ton Duarte - Last Filed: 09/13/17 18:06> - Discharge Dispostion Decision to Admit order: Yes <Todd Kennedy - Last Filed: 09/13/17 18:11> Diagnosis at time of Disposition: Ischemic colitis - Discharge Dispostion Condition at time of disposition: Good
[2017-09-13 12:47] LABS: URINE APPEARANCE CLEAR; URINE BILIRUBIN NEGATIVE (<2.0 mg/dL); URINE COLOR COLORLESS; URINE GLUCOSE (UA) NEGATIVE (NEGATIVE); URINE KETONE NEGATIVE (NEGATIVE); URINE LEUK ESTERASE TRACE (NEGATIVE); URINE NITRITE NEGATIVE (NEGATIVE); URINE PROTEIN NEGATIVE (NEGATIVE); URINE UROBILINOGEN NEGATIVE mg/dL (0.2-1.0)
[2017-09-13 13:00] LABS: EPI CELLS RARE /HPF (FEW)
[2017-09-13 13:23] LABS: BASO % 0.6 % (0-2.0); EOS % 1.6 % (0-4.5); HEMATOCRIT 43.3 % (32.4-45.2); HEMOGLOBIN 14.3 GM/dL (10.7-15.3); LYMPH % 14.4 % (8-40); MCH 32.7 pg (25.7-33.7); MEAN CELL VOLUME 99.2 fl (80-96); MEAN PLT VOLUME 7.5 fl (7.5-11.1); NEUT % 77.4 % (42.8-82.8); PLATELET COUNT 217 K/MM3 (134-434); RBC 4.37 M/mm3 (3.60-5.2); WHITE BLOOD COUNT 8.4 K/mm3 (4.0-10.0)
[2017-09-13 13:50] LABS: ALBUMIN 3.8 g/dl (3.4-5.0); ANION GAP 7 (8-16); BILIRUBIN,TOTAL 0.9 mg/dL (0.2-1.0); BLOOD UREA NITROGEN 12 mg/dL (7-18); CALCIUM 8.6 mg/dL (8.5-10.1); CHLORIDE 113 mmol/L (98-107); CO2 24 mmol/L (21-32); CREATININE 0.9 mg/dL (0.55-1.02); GLUCOSE,RANDOM 90 mg/dL (74-106); POTASSIUM 3.6 mmol/L (3.5-5.1); SGOT/AST 27 U/L (15-37); SGPT/ALT 29 U/L (12-78); SODIUM 144 mmol/L (136-145); TOT PROT 7.4 g/dl (6.4-8.2)
[2017-09-13 13:51] LABS: ALK PHOS 101 U/L (45-117)
[2017-09-13] MEDS ORDERED: SODIUM CHLORIDE 0.9% 1000 ML INFUS.BAG IV ONE (16:15)
--- NOTE | 2017-09-13 17:42 | HP ---
CHIEF COMPLAINT: LLQ pain and blood in toilet PCP: HISTORY OF PRESENT ILLNESS: Patient is an 87 year old female with a significant past medical history of hypertension (not on any home meds), sinus bradycardia and kidney stones. She presents to the ED today for LLQ pain x 4 days and blood in the toilet after a bowel movement. Patient and son report a 4 day history of LLQ pain. She describes the LLQ as moderate in nature but does not radiate. She reports abdominal pain then had a bowel movement and noticed a large amount of blood in the toilet earlier today prompting and ED visit. She is unsure if the blood she was from her bowel movement or from urine. In the ED she was noted to have mild distension of her abdomen with hypoactive bowel sounds. She denies any chest pain, fevers, shortness of breath, dizziness or headaches. CT/Abdomen pelvis consistent with ischemic colitis vs infectious/inflammatory colitis. Patient was started on Levaquin, Flagyl and IVF. Will attempt a trial of clears and monitor as per GI. ER course was notable for: (1) abd ct scan consistent with ischemic colitis vs infectious/inflammatory colitis (2) UA with clear yellow urine +1 blood (3) Recent Travel: PAST MEDICAL HISTORY: PAST SURGICAL HISTORY: Social History: Smoking: Alcohol: Drugs: Family History: Allergies aspirin Allergy (Verified 09/13/17 11:23) shellfish derived Allergy (Verified 09/13/17 11:24) HOME MEDICATIONS: Home Medications Medication Instructions Recorded Brimonidine Tartrate/Timolol 10 ml OP DAILY 10/25/16 [Combigan 0.2%-0.5% Eye Drops] acetaZOLAMIDE [Diamox -] 250 mg PO TID 09/13/17 PHYSICAL EXAMINATION Vital Signs - 24 hr 09/13/17 09/13/17 11:24 16:49 Temperature 98.4 F 98.3 F Pulse Rate 63 Pulse Rate [ 77 Left Apical] Respiratory 20 16 Rate Blood Pressure 148/70 Blood Pressure 141/87 [Left Arm] O2 Sat by Pulse 100 98 Oximetry (%) GENERAL: Awake, alert, and fully oriented, in no acute distress. HEAD: Normal with no signs of trauma. EYES: Pupils equal, round and reactive to light, extraocular movements intact, sclera anicteric, conjunctiva clear. No lid lag. EARS, NOSE, THROAT: Ears normal, nares patent, oropharynx clear without exudates. Moist mucous membranes. NECK: Normal range of motion, supple without lymphadenopathy, JVD, or masses. LUNGS: Breath sounds equal, clear to auscultation bilaterally. No wheezes, and no crackles. No accessory muscle use. HEART: Regular rate and rhythm, normal S1 and S2 without murmur, rub or gallop. ABDOMEN: mildly distended, hypoactive bowel sounds MUSCULOSKELETAL: Normal range of motion at all joints. No bony deformities or tenderness. No CVA tenderness. UPPER EXTREMITIES: 2+ pulses, warm, well-perfused. No cyanosis. No clubbing. No peripheral edema. LOWER EXTREMITIES: 2+ pulses, warm, well-perfused. No calf tenderness. No peripheral edema. NEUROLOGICAL: Cranial nerves II-XII intact. Normal speech. Normal gait. PSYCHIATRIC: Cooperative. Good eye contact. Appropriate mood and affect. SKIN: Warm, dry, normal turgor, no rashes or lesions noted, normal capillary refill. Laboratory Results - last 24 hr 09/13/17 09/13/17 09/13/17 11:00 12:27 12:27 WBC 8.4 RBC 4.37 Hgb 14.3 D Hct 43.3 D MCV 99.2 H MCH 32.7 MCHC 33.0 RDW 14.0 Plt Count 217 MPV 7.5 Absolute Neuts (auto) 6.5 Neutrophils % 77.4 Lymphocytes % 14.4 D Monocytes % 6.0 Eosinophils % 1.6 Basophils % 0.6 Nucleated RBC % 0 Sodium 144 Potassium 3.6 Chloride 113 H Carbon Dioxide 24 Anion Gap 7 L BUN 12 Creatinine 0.9 Creat Clearance w eGFR 59.51 Random Glucose 90 Calcium 8.6 Total Bilirubin 0.9 D AST 27 ALT 29 Alkaline Phosphatase 101 Total Protein 7.4 Albumin 3.8 Urine Color Colorless Urine Appearance Clear Urine pH 6.0 Ur Specific [place] 1.003 Urine Protein Negative Urine Glucose (UA) Negative Urine Ketones Negative Urine Blood 1+ H Urine Nitrite Negative Urine Bilirubin Negative Urine Urobilinogen Negative Ur Leukocyte Esterase Trace Urine WBC (Auto) <1 Urine RBC (Auto) None Ur Epithelial Cells Rare Stool Occult Blood 09/13/17 12:27 WBC RBC Hgb Hct MCV MCH MCHC RDW Plt Count MPV Absolute Neuts (auto) Neutrophils % Lymphocytes % Monocytes % Eosinophils % Basophils % Nucleated RBC % Sodium Potassium Chloride Carbon Dioxide Anion Gap BUN Creatinine Creat Clearance w eGFR Random Glucose Calcium Total Bilirubin AST ALT Alkaline Phosphatase Total Protein Albumin Urine Color Urine Appearance Urine pH Ur Specific [place] Urine Protein Urine Glucose (UA) Urine Ketones Urine Blood Urine Nitrite Urine Bilirubin Urine Urobilinogen Ur Leukocyte Esterase Urine WBC (Auto) Urine RBC (Auto) Ur Epithelial Cells Stool Occult Blood Negative ASSESSMENT/PLAN: Patient is an 87 year old female with a significant past medical history of hypertension (not on any home meds), sinus bradycardia and kidney stones. She presents to the ED today for LLQ pain x 4 days and blood in the toilet after a bowel movement. Patient and son report a 4 day history of LLQ pain. She describes the LLQ as moderate in nature but does not radiate. She reports abdominal pain then had a bowel movement and noticed a large amount of blood in the toilet earlier today prompting and ED visit. She is unsure if the blood she was from her bowel movement or from urine. In the ED she was noted to have mild distension of her abdomen with hypoactive bowel sounds. She denies any chest pain, fevers, shortness of breath, dizziness or headaches. CT/Abdomen pelvis consistent with ischemic colitis vs infectious/inflammatory colitis. Patient was started on Levaquin, Flagyl and IVF. Will attempt a trial of clears and monitor as per GI. GI: LLQ pain CT/Abdomen pelvis consistent with ischemic colitis vs infectious/inflammatory colitis. Start Levaquin, Flagyl, IVF, clear liquid diet. Monitor labs, vitals. GI consulted Card: hypertension, controlled. Monitor BP for now. FEN NS @ 100cc/hr monitor electrolytes clear liquid diet Prophy No a/c secondary to acute bleeding episode Protonix PO Hospitalist Screening - Colonoscopy Questionnaire Colonoscopy Questionnaire: Colonoscopy Questionnaire
[2017-09-13] MEDS: SODIUM CHLORIDE 1,000 ML IV SCH (18:01)
[2017-09-13] MEDS ORDERED: ACETAMINOPHEN 1000 MG/100 ML VIAL (NON FORMULARY) IVPB PRN (21:04)
[2017-09-13] MEDS: TIMOLOL 0.5% OPHTHALMIC SOL 5 ML BOTTLE OS SCH (21:40)
[2017-09-13] MEDS: BRIMONIDINE TARTRATE 0.2% OPHTHALMIC 5 ML BOTTLE OS SCH (21:40)
[2017-09-13] MEDS ORDERED: PT OWN MED DRAWER 7, Y5N ONE (22:32)
[2017-09-13 23:09] VITALS: BMI 23.1
[2017-09-14] MEDS ORDERED: PT OWN MED DRAWER 7, Y5N ONE ×6 (01:30→22:28)
[2017-09-14 06:42] LABS: HEMATOCRIT 39.4 % (32.4-45.2); HEMOGLOBIN 13.2 GM/dL (10.7-15.3); MCH 33.1 pg (25.7-33.7); MCHC 33.4 g/dl (32.0-36.0); MEAN CELL VOLUME 99.1 fl (80-96); MEAN PLT VOLUME 6.9 fl (7.5-11.1); PLATELET COUNT 195 K/MM3 (134-434); RBC 3.98 M/mm3 (3.60-5.2); RDW 13.8 % (11.6-15.6); WHITE BLOOD COUNT 8.6 K/mm3 (4.0-10.0)
[2017-09-14 07:19] LABS: CHLORIDE 114 mmol/L (98-107); POTASSIUM 3.4 mmol/L (3.5-5.1); SODIUM 144 mmol/L (136-145)
[2017-09-14 07:23] LABS: ANION GAP 7 (8-16); BLOOD UREA NITROGEN 12 mg/dL (7-18); CALCIUM 8.2 mg/dL (8.5-10.1); CO2 23 mmol/L (21-32); CREATININE 0.8 mg/dL (0.55-1.02); GLUCOSE,RANDOM 69 mg/dL (74-106); MAGNESIUM 2.1 mg/dL (1.8-2.4)
[2017-09-14] MEDS ORDERED: KCL 10 MEQ IVPB 10 MEQ/100 ML INFUS.BAG IVPB SCH (07:30)
[2017-09-14 08:19] LABS: CHOLESTEROL 220 mg/dL (50-200); HDL CHOLESTEROL 56 mg/dL (40-60); TRIGLYCERIDES 125 mg/dL (35-160)
--- NOTE | 2017-09-14 09:32 | PN ---
Physical Exam: SUBJECTIVE: Patient seen and examined. Denies LLQ pain, no tenderness. Denies nausea or vomiting or abdominal pain. Tolerating clears OBJECTIVE: bowel movement today, loose not blood seen. Vital Signs Period Temp Pulse Resp BP Sys/Hassan Pulse Ox Last 24 Hr 98 F-98.6 F 58-77 16-20 117-149/62-87 98-100 GENERAL: Awake, alert, and fully oriented, in no acute distress. HEAD: Normal with no signs of trauma. EYES: Pupils equal, round and reactive to light, extraocular movements intact, sclera anicteric, conjunctiva clear. No lid lag. EARS, NOSE, THROAT: Ears normal, nares patent, oropharynx clear without exudates. Moist mucous membranes. NECK: Normal range of motion, supple without lymphadenopathy, JVD, or masses. LUNGS: Breath sounds equal, clear to auscultation bilaterally. No wheezes, and no crackles. No accessory muscle use. HEART: Regular rate and rhythm, normal S1 and S2 without murmur, rub or gallop. ABDOMEN: mildly distended, but improved, no abdominal pain, no nausea or vomiting, +bowel movement MUSCULOSKELETAL: Normal range of motion at all joints. No bony deformities or tenderness. No CVA tenderness. UPPER EXTREMITIES: 2+ pulses, warm, well-perfused. No cyanosis. No clubbing. No peripheral edema. LOWER EXTREMITIES: 2+ pulses, warm, well-perfused. No calf tenderness. No peripheral edema. NEUROLOGICAL: Cranial nerves II-XII intact. Normal speech. Normal gait. PSYCHIATRIC: Cooperative. Good eye contact. Appropriate mood and affect. SKIN: Warm, dry, normal turgor, no rashes or lesions noted, normal capillary refill. Laboratory Results - last 24 hr 09/13/17 09/13/17 09/13/17 11:00 12:27 12:27 WBC 8.4 RBC 4.37 Hgb 14.3 D Hct 43.3 D MCV 99.2 H MCH 32.7 MCHC 33.0 RDW 14.0 Plt Count 217 MPV 7.5 Absolute Neuts (auto) 6.5 Neutrophils % 77.4 Lymphocytes % 14.4 D Monocytes % 6.0 Eosinophils % 1.6 Basophils % 0.6 Nucleated RBC % 0 Sodium 144 Potassium 3.6 Chloride 113 H Carbon Dioxide 24 Anion Gap 7 L BUN 12 Creatinine 0.9 Creat Clearance w eGFR 59.51 Random Glucose 90 Hemoglobin A1c % Calcium 8.6 Magnesium Total Bilirubin 0.9 D AST 27 ALT 29 Alkaline Phosphatase 101 Total Protein 7.4 Albumin 3.8 Triglycerides Cholesterol Total LDL Cholesterol HDL Cholesterol Urine Color Colorless Urine Appearance Clear Urine pH 6.0 Ur Specific [place] 1.003 Urine Protein Negative Urine Glucose (UA) Negative Urine Ketones Negative Urine Blood 1+ H Urine Nitrite Negative Urine Bilirubin Negative Urine Urobilinogen Negative Ur Leukocyte Esterase Trace Urine WBC (Auto) <1 Urine RBC (Auto) None Ur Epithelial Cells Rare Stool Occult Blood 09/13/17 09/14/17 09/14/17 12:27 06:30 06:30 WBC 8.6 RBC 3.98 Hgb 13.2 Hct 39.4 MCV 99.1 H MCH 33.1 MCHC 33.4 RDW 13.8 Plt Count 195 MPV 6.9 L Absolute Neuts (auto) Neutrophils % Lymphocytes % Monocytes % Eosinophils % Basophils % Nucleated RBC % Sodium 144 Potassium 3.4 L Chloride 114 H Carbon Dioxide 23 Anion Gap 7 L BUN 12 Creatinine 0.8 Creat Clearance w eGFR > 60 Random Glucose 69 L Hemoglobin A1c % Calcium 8.2 L Magnesium 2.1 Total Bilirubin AST ALT Alkaline Phosphatase Total Protein Albumin Triglycerides 125 Cholesterol 220 H Total LDL Cholesterol 149 H HDL Cholesterol 56 Urine Color Urine Appearance Urine pH Ur Specific [place] Urine Protein Urine Glucose (UA) Urine Ketones Urine Blood Urine Nitrite Urine Bilirubin Urine Urobilinogen Ur Leukocyte Esterase Urine WBC (Auto) Urine RBC (Auto) Ur Epithelial Cells Stool Occult Blood Negative 09/14/17 09/14/17 06:30 06:30 WBC RBC Hgb Hct MCV MCH MCHC RDW Plt Count MPV Absolute Neuts (auto) Neutrophils % Lymphocytes % Monocytes % Eosinophils % Basophils % Nucleated RBC % Sodium Potassium Chloride Carbon Dioxide Anion Gap BUN Creatinine Creat Clearance w eGFR Random Glucose Hemoglobin A1c % 4.6 L Calcium Magnesium Total Bilirubin AST ALT Alkaline Phosphatase Total Protein Albumin Triglycerides Cancelled Cholesterol Cancelled Total LDL Cholesterol Cancelled HDL Cholesterol Cancelled Urine Color Urine Appearance Urine pH Ur Specific [place] Urine Protein Urine Glucose (UA) Urine Ketones Urine Blood Urine Nitrite Urine Bilirubin Urine Urobilinogen Ur Leukocyte Esterase Urine WBC (Auto) Urine RBC (Auto) Ur Epithelial Cells Stool Occult Blood Active Medications Generic Name Dose Route Start Last Admin Trade Name Freq PRN Reason Stop Dose Admin Acetaminophen 1,000 mg 09/13/17 21:04 Ofirmev Injection - IVPB Q6H PRN PAIN LEVEL 7 - 10 Brimonidine Tartrate 1 drop 09/13/17 22:00 09/13/17 21:40 Alphagan 0.2% - OS 1 drop BID BAN Administration Sodium Chloride 1,000 mls @ 100 mls/hr 09/13/17 18:00 09/13/17 18:01 Normal Saline - IV 100 mls/hr ASDIR BAN Administration Metronidazole 250 mg in 50 mls @ 50 mls/hr 09/14/17 02:00 09/14/17 02:00 Flagyl 250mg Premixed Ivpb - IVPB 50 mls/hr Q8H-IV BAN Administration Levofloxacin 250 mg in 50 mls @ 50 mls/hr 09/14/17 10:00 Levaquin 250 Mg Premixed Ivpb - IVPB DAILY BAN Protocol Pantoprazole Sodium 40 mg 09/14/17 10:00 Protonix - PO DAILY BAN Timolol Maleate 1 drop 09/13/17 22:00 09/13/17 21:40 Timoptic 0.5% OS 1 drop BID BAN Administration ASSESSMENT/PLAN: Patient is an 87 year old female with a significant past medical history of hypertension (not on any home meds), sinus bradycardia and kidney stones. She presents to the ED today for LLQ pain x 4 days and blood in the toilet after a bowel movement. Patient and son report a 4 day history of LLQ pain. She describes the LLQ as moderate in nature but does not radiate. She reports abdominal pain then had a bowel movement and noticed a large amount of blood in the toilet earlier today prompting and ED visit. She is unsure if the blood she was from her bowel movement or from urine. In the ED she was noted to have mild distension of her abdomen with hypoactive bowel sounds. She denies any chest pain, fevers, shortness of breath, dizziness or headaches. A CT/Abdomen pelvis consistent with ischemic colitis vs infectious/inflammatory colitis. GI: LLQ pain, improving CT/Abdomen pelvis consistent with ischemic colitis vs infectious/inflammatory colitis. On Levaquin, Flagyl, IVF. BM today, no blood seen in toilet, had loose BM today. Stool studies not collected pt had BM in toilet. Advance diet to full liquids. Monitor labs, vitals. GI consulted Card: hypertension, controlled. Monitor BP for now. FEN NS @ 100cc/hr monitor electrolytes Advance diet as tolerated Prophy No a/c secondary to acute bleeding episode Protonix PO full code
[2017-09-14] MEDS ORDERED: PATIENT'S OWN MEDICATION (NON-FORMULARY) (Brimonidine Tartrate/Timolol [Combigan 0.2%-0.5% OP SCH (10:00)
[2017-09-14] MEDS: TIMOLOL 0.5% OPHTHALMIC SOL 5 ML BOTTLE OS SCH ×2 (10:03→22:55)
[2017-09-14] MEDS: BRIMONIDINE TARTRATE 0.2% OPHTHALMIC 5 ML BOTTLE OS SCH ×2 (10:05→22:55)
[2017-09-14] MEDS: PANTOPRAZOLE 40 MG TABLET (FP) PO SCH (10:06)
[2017-09-14] MEDS: SODIUM CHLORIDE 1,000 ML IV SCH ×2 (16:40→18:15)
--- NOTE | 2017-09-14 16:59 | CON.GI ---
Consult Consult Specialty:: GI Reason for Consultation:: hematochezia, colitis - History of Present Illness History of Present Illness: Chart reviewed. Events noted. Discussed with ED attending last evening. PER ED: The patient is an 87 year old female with a significant past medical history of hypertension, sinus bradycardia, and kidney stones who presents to the emergency department for evaluation of left lower quadrant pain and blood in the toilet. The patient reports a 2 day history of left lower quadrant pain. She describes the left lower quadrant pain as moderate in nature, with no radiation. She states her stomach felt like a drum was playing right before passing a bowel movement. She reports her left lower quadrant pain began after eating a large amount at a [employer] 2 days ago. The patient reports seeing a large amount of blood in the toilet this morning and was unsure if it was from her bowel movement or urine, which prompted her to call 911 to visit the emergency department for further evaluation. CT A/P w/o showed acute left colon changes consistent with infection vs ischemic colitis. At the time of this encounter the pat appeared comfortable, not in distress, or pain. Corroborated the above history. Ambulating. Had loose stools this am w/o hematochezia, melena. No nausea, vomiting, dyspepsia, jaundice, or fevers. No prior episodes of the same. No weight loss. No hx of PUD, chronic NSAIDs, diverticulosis. Last colonoscopy was in 2007 @ [facility]. A polyp was found. Didn't follow for 5-year colon cancer surveillance. - History Source History Provided By: Patient, Medical Record - Alcohol/Substance Use Hx Alcohol Use: No - Smoking History Smoking history: Never smoked Home Medications - Allergies Allergies/Adverse Reactions: Allergies Allergy/AdvReac Type Severity Reaction Status Date / Time aspirin Allergy Verified 09/13/17 11:23 shellfish derived Allergy Verified 09/13/17 11:24 - Home Medications Home Medications: Ambulatory Orders Brimonidine Tartrate/Timolol [Combigan 0.2%-0.5% Eye Drops] 10 ml OP DAILY 10/25 acetaZOLAMIDE [Diamox -] 250 mg PO TID 09/13/17 Family Disease History - Family Disease History Family History: Unremarkable Review of Systems Findings/Remarks: as per HPI, H&P, ED Physical Exam-GI Vital Signs: Vital Signs Temperature 97.4 F L 09/14/17 15:05 Pulse Rate 66 09/14/17 15:05 Respiratory Rate 18 09/14/17 15:05 Blood Pressure 117/62 09/14/17 15:05 O2 Sat by Pulse Oximetry (%) 98 09/14/17 09:00 Constitutional: Yes: Well Nourished, No Distress, Calm Eyes: Yes: Conjunctiva Clear HENT: Yes: Atraumatic Cardiovascular: Yes: Regular Rate and Rhythm Respiratory: Yes: Regular Gastrointestinal Inspection: No: Ascites, Distention ...Auscultate: Yes: Normoactive Bowel Sounds ...Palpate: Yes: Soft. No: Firm/Rigid, Guarding, Mass, Tenderness, Tenderness, Rebound ...Rectal Exam: Yes: Guaiac Positive (FIDELIA) Neurological: Yes: Alert, Oriented Labs: CBC, [facility] 09/14/17 06:30 09/14/17 06:30 Laboratory Last Values WBC 8.6 K/mm3 (4.0-10.0) 09/14/17 06:30 RBC 3.98 M/mm3 (3.60-5.2) 09/14/17 06:30 Hgb 13.2 GM/dL (10.7-15.3) 09/14/17 06:30 Hct 39.4 % (32.4-45.2) 09/14/17 06:30 MCV 99.1 fl (80-96) H 09/14/17 06:30 MCH 33.1 pg (25.7-33.7) 09/14/17 06:30 MCHC 33.4 g/dl (32.0-36.0) 09/14/17 06:30 RDW 13.8 % (11.6-15.6) 09/14/17 06:30 Plt Count 195 K/MM3 (134-434) 09/14/17 06:30 MPV 6.9 fl (7.5-11.1) L 09/14/17 06:30 Absolute Neuts (auto) 6.5 # 09/13/17 12:27 Neutrophils % 77.4 % (42.8-82.8) 09/13/17 12:27 Lymphocytes % 14.4 % (8-40) D 09/13/17 12:27 Monocytes % 6.0 % (3.8-10.2) 09/13/17 12:27 Eosinophils % 1.6 % (0-4.5) 09/13/17 12:27 Basophils % 0.6 % (0-2.0) 09/13/17 12:27 Nucleated RBC % 0 % (0-0) 09/13/17 12:27 Sodium 144 mmol/L (136-145) 09/14/17 06:30 Potassium 3.4 mmol/L (3.5-5.1) L 09/14/17 06:30 Chloride 114 mmol/L (98-107) H 09/14/17 06:30 Carbon Dioxide 23 mmol/L (21-32) 09/14/17 06:30 Anion Gap 7 (8-16) L 09/14/17 06:30 BUN 12 mg/dL (7-18) 09/14/17 06:30 Creatinine 0.8 mg/dL (0.55-1.02) 09/14/17 06:30 Creat Clearance w eGFR > 60 (>60) 09/14/17 06:30 Random Glucose 69 mg/dL (74-106) L 09/14/17 06:30 Hemoglobin A1c % 4.6 % (4.8-6.0) L 09/14/17 06:30 Calcium 8.2 mg/dL (8.5-10.1) L 09/14/17 06:30 Magnesium 2.1 mg/dL (1.8-2.4) 09/14/17 06:30 Total Bilirubin 0.9 mg/dL (0.2-1.0) D 09/13/17 12:27 AST 27 U/L (15-37) 09/13/17 12:27 ALT 29 U/L (12-78) 09/13/17 12:27 Alkaline Phosphatase 101 U/L (45-117) 09/13/17 12:27 Total Protein 7.4 g/dl (6.4-8.2) 09/13/17 12:27 Albumin 3.8 g/dl (3.4-5.0) 09/13/17 12:27 Triglycerides 125 mg/dL (35-160) 09/14/17 06:30 Cholesterol 220 mg/dL (50-200) H 09/14/17 06:30 Total LDL Cholesterol 149 mg/dL (5-100) H 09/14/17 06:30 HDL Cholesterol 56 mg/dL (40-60) 09/14/17 06:30 Urine Color Colorless 09/13/17 11:00 Urine Appearance Clear 09/13/17 11:00 Urine pH 6.0 (5.0-8.0) 09/13/17 11:00 Ur Specific [place] 1.003 (1.001-1.035) 09/13/17 11:00 Urine Protein Negative (NEGATIVE) 09/13/17 11:00 Urine Glucose (UA) Negative (NEGATIVE) 09/13/17 11:00 Urine Ketones Negative (NEGATIVE) 09/13/17 11:00 Urine Blood 1+ (NEGATIVE) H 09/13/17 11:00 Urine Nitrite Negative (NEGATIVE) 09/13/17 11:00 Urine Bilirubin Negative (<2.0 mg/dL) 09/13/17 11:00 Urine Urobilinogen Negative mg/dL (0.2-1.0) 09/13/17 11:00 Ur Leukocyte Esterase Trace (NEGATIVE) 09/13/17 11:00 Urine WBC (Auto) <1 /hpf (3-5) 09/13/17 11:00 Urine RBC (Auto) None /hpf (0-3) 09/13/17 11:00 Ur Epithelial Cells Rare /HPF (FEW) 09/13/17 11:00 Stool Occult Blood Negative (NEGATIVE) 09/13/17 12:27 Imaging - Results Cat Scan: Report Reviewed Problem List - Problems (1) Infectious colitis Code(s): A09 - INFECTIOUS GASTROENTERITIS AND COLITIS, UNSPECIFIED (2) Personal history of colonic polyps Code(s): Z86.010 - PERSONAL HISTORY OF COLONIC POLYPS (3) Ischemic colitis Code(s): K55.9 - VASCULAR DISORDER OF INTESTINE, UNSPECIFIED Assessment/Plan An 87F with what appears to be either ischemic vs infectious colitis. Stool work up pending - follow. The pt does not appear toxic, or in dostress. Has good response to the current treatment - continue the same. BRAT diet. Colonoscopy in 6-8 weeks.
--- NOTE | 2017-09-14 17:49 | EKG ---
Test Reason : Blood Pressure : / mmHG Vent. Rate : 056 BPM Atrial Rate : 056 BPM P-R Int : 182 ms QRS Dur : 130 ms QT Int : 478 ms P-R-T Axes : 064 -55 078 degrees QTc Int : 461 ms SINUS BRADYCARDIA LEFT AXIS DEVIATION LEFT BUNDLE BRANCH BLOCK ABNORMAL ECG WHEN COMPARED WITH ECG OF 12-JAN-2017 10:02, PREMATURE ATRIAL COMPLEXES ARE NO LONGER PRESENT Confirmed by TRUMAN MCGOWAN, GEMINI ([id number]) on 09/14/2017 5:48:41 PM Referred By: Confirmed By:GEMINI LAUGHLIN MD
[2017-09-14] MEDS: ATORVASTATIN CA 10 MG TABLET (FP) PO SCH (22:54)
[2017-09-15] MEDS ORDERED: PT OWN MED DRAWER 7, Y5N ONE ×4 (01:16→22:18)
[2017-09-15 07:21] LABS: BASO % 0.6 % (0-2.0); EOS % 4.4 % (0-4.5); HEMATOCRIT 38.4 % (32.4-45.2); HEMOGLOBIN 12.9 GM/dL (10.7-15.3); LYMPH % 26.9 % (8-40); MCH 33.1 pg (25.7-33.7); MCHC 33.6 g/dl (32.0-36.0); MEAN CELL VOLUME 98.4 fl (80-96); MEAN PLT VOLUME 7.2 fl (7.5-11.1); MONO % 8.9 % (3.8-10.2); NEUT % 59.2 % (42.8-82.8); PLATELET COUNT 198 K/MM3 (134-434); RBC 3.91 M/mm3 (3.60-5.2); RDW 13.9 % (11.6-15.6); WHITE BLOOD COUNT 5.8 K/mm3 (4.0-10.0)
[2017-09-15 07:35] LABS: ALBUMIN 3.2 g/dl (3.4-5.0); ALK PHOS 84 U/L (45-117); ANION GAP 6 (8-16); BILIRUBIN,TOTAL 0.7 mg/dL (0.2-1.0); BLOOD UREA NITROGEN 6 mg/dL (7-18); CALCIUM 8.3 mg/dL (8.5-10.1); CHLORIDE 117 mmol/L (98-107); CO2 24 mmol/L (21-32); CREATININE 0.9 mg/dL (0.55-1.02); GLUCOSE,RANDOM 81 mg/dL (74-106); POTASSIUM 3.4 mmol/L (3.5-5.1); SGOT/AST 20 U/L (15-37); SGPT/ALT 22 U/L (12-78); SODIUM 147 mmol/L (136-145); TOT PROT 6.3 g/dl (6.4-8.2)
[2017-09-15] MEDS: PANTOPRAZOLE 40 MG TABLET (FP) PO SCH (11:51)
[2017-09-15] MEDS: BRIMONIDINE TARTRATE 0.2% OPHTHALMIC 5 ML BOTTLE OS SCH ×2 (11:52→22:19)
[2017-09-15] MEDS: TIMOLOL 0.5% OPHTHALMIC SOL 5 ML BOTTLE OS SCH ×2 (11:52→22:19)
--- NOTE | 2017-09-15 18:35 | PN ---
Physical Exam: SUBJECTIVE: Patient seen and examined. States she is feeling better no abd pain fever OBJECTIVE: Vital Signs Period Temp Pulse Resp BP Sys/Hassan Pulse Ox Last 24 Hr 97.9 F-98.8 F 59-73 18-20 118-151/62-98 98 PE Neuro: alert, awake, cn 2-12intact Pulm: CTAB CV: s1 s2 rrr Abd: s nt nd +bs Ext: RUE forearm swelling from piv non tender no erythem, no le edema Laboratory Results - last 24 hr 09/15/17 09/15/17 07:00 07:00 WBC 5.8 D RBC 3.91 Hgb 12.9 Hct 38.4 MCV 98.4 H MCH 33.1 MCHC 33.6 RDW 13.9 Plt Count 198 MPV 7.2 L Absolute Neuts (auto) 3.4 Neutrophils % 59.2 D Lymphocytes % 26.9 D Monocytes % 8.9 Eosinophils % 4.4 D Basophils % 0.6 Nucleated RBC % 0 Sodium 147 H Potassium 3.4 L Chloride 117 H Carbon Dioxide 24 Anion Gap 6 L BUN 6 L Creatinine 0.9 Creat Clearance w eGFR 59.51 Random Glucose 81 Calcium 8.3 L Magnesium 2.0 Total Bilirubin 0.7 D AST 20 ALT 22 Alkaline Phosphatase 84 Total Protein 6.3 L Albumin 3.2 L Active Medications Generic Name Dose Route Start Last Admin Trade Name Goldenq PRN Reason Stop Dose Admin Acetaminophen 1,000 mg 09/13/17 21:04 Ofirmev Injection - IVPB Q6H PRN PAIN LEVEL 7 - 10 Atorvastatin Calcium 10 mg 09/14/17 22:00 09/14/17 22:54 Lipitor - PO 10 mg HS BAN Administration Brimonidine Tartrate 1 drop 09/13/17 22:00 09/15/17 11:52 Alphagan 0.2% - OS 1 drop BID BAN Administration Metronidazole 250 mg in 50 mls @ 50 mls/hr 09/14/17 02:00 09/15/17 17:32 Flagyl 250mg Premixed Ivpb - IVPB 50 mls/hr Q8H-IV BAN Administration Levofloxacin 250 mg in 50 mls @ 50 mls/hr 09/14/17 10:00 09/15/17 11:51 Levaquin 250 Mg Premixed Ivpb - IVPB 50 mls/hr DAILY BAN Administration Protocol Pantoprazole Sodium 40 mg 09/14/17 10:00 09/15/17 11:51 Protonix - PO 40 mg DAILY BAN Administration Potassium Chloride 40 meq 09/15/17 19:30 Potassium Chloride Oral Liquid PO 09/15/17 19:31 ONCE ONE Timolol Maleate 1 drop 09/13/17 22:00 09/15/17 11:52 Timoptic 0.5% OS 1 drop BID BAN Administration Imaging: CTAP: ischemic colitis vs infectious/inflammatory colitis. Assessment: 87 year old female with pmhx of HTN (not on any home meds), sinus bradycardia and kidney stones admitted with LLQ pain x4days Plan: 1. Ischemic colitis vs infectious colitis - Stool studies pending - Increase doses of levaquin/flagyl - Advance to BRAT diet - Colonoscopy 8 weeks - Stop fluids - GI note reviewed 2. HTN - Labile, however stable 3. Hypokalemia - Replete Visit type - Emergency Visit Emergency Visit: Yes ED Registration Date: 09/13/17 Care time: The patient presented to the Emergency Department on the above date and was hospitalized for further evaluation of their emergent condition. - New Patient This patient is new to me today: Yes Date on this admission: 09/15/17 - Critical Care Critical Care patient: No
[2017-09-15] MEDS ORDERED: POTASSIUM CHLORIDE ORAL LIQUID 20 MEQ/15 ML PO ONE (19:30)
[2017-09-15] MEDS: SODIUM CHLORIDE 1,000 ML IV SCH (20:12)
[2017-09-15] MEDS: ATORVASTATIN CA 10 MG TABLET (FP) PO SCH (22:19)
[2017-09-15] MEDS: metroNIDAZOLE 250 MG TABLET PO SCH (22:19)
[2017-09-16] MEDS: metroNIDAZOLE 250 MG TABLET PO SCH ×3 (06:28→21:59)
[2017-09-16] MEDS ORDERED: PT OWN MED DRAWER 7, Y5N ONE ×2 (08:54→21:55)
[2017-09-16] MEDS: PANTOPRAZOLE 40 MG TABLET (FP) PO SCH (08:59)
[2017-09-16] MEDS: BRIMONIDINE TARTRATE 0.2% OPHTHALMIC 5 ML BOTTLE OS SCH ×2 (08:59→21:59)
[2017-09-16] MEDS: TIMOLOL 0.5% OPHTHALMIC SOL 5 ML BOTTLE OS SCH ×2 (08:59→21:58)
[2017-09-16 09:03] LABS: ANION GAP 7 (8-16); BLOOD UREA NITROGEN 4 mg/dL (7-18); CALCIUM 8.4 mg/dL (8.5-10.1); CHLORIDE 114 mmol/L (98-107); CO2 24 mmol/L (21-32); CREATININE 0.9 mg/dL (0.55-1.02); GLUCOSE,RANDOM 80 mg/dL (74-106); POTASSIUM 4.1 mmol/L (3.5-5.1); SODIUM 145 mmol/L (136-145)
--- NOTE | 2017-09-16 11:24 | PN ---
Progress Note (short form) - Note Progress Note: SUBJECTIVE: The patient was seen and examined at the bedside, she reports feeling better today. She denies any abdominal pain, nausea, vomiting. The patient reports one episode of loose stool today and yesterday Awaiting stool cultures Current Medications Generic Name Dose Route Start Last Admin Trade Name Freq PRN Reason Stop Dose Admin Acetaminophen 1,000 mg 09/13/17 21:04 Ofirmev Injection - IVPB Q6H PRN PAIN LEVEL 7 - 10 Atorvastatin Calcium 10 mg 09/14/17 22:00 09/15/17 22:19 Lipitor - PO 10 mg HS BAN Administration Brimonidine Tartrate 1 drop 09/13/17 22:00 09/16/17 08:59 Alphagan 0.2% - OS 1 drop BID BAN Administration Levofloxacin 250 mg 09/16/17 10:00 09/16/17 08:59 Levaquin - PO 250 mg DAILY BAN Administration Metronidazole 500 mg 09/15/17 22:00 09/16/17 06:28 Flagyl - PO 500 mg TID BAN Administration Pantoprazole Sodium 40 mg 09/14/17 10:00 09/16/17 08:59 Protonix - PO 40 mg DAILY BAN Administration Timolol Maleate 1 drop 09/13/17 22:00 09/16/17 08:59 Timoptic 0.5% OS 1 drop BID BAN Administration OBJECTIVE: Vital Signs Period Temp Pulse Resp BP Sys/Hassan Pulse Ox Last 24 Hr 97.8 F-98.7 F 62-71 18-20 121-148/60-75 98-98 Physical Exam: Neuro: alert, awake, cn 2-12intact Pulm: CTA bilaterally CV: RRR, S1S2 Abd: s nt nd +bs CBCD WBC 5.8 K/mm3 (4.0-10.0) D 09/15/17 07:00 RBC 3.91 M/mm3 (3.60-5.2) 09/15/17 07:00 Hgb 12.9 GM/dL (10.7-15.3) 09/15/17 07:00 Hct 38.4 % (32.4-45.2) 09/15/17 07:00 MCV 98.4 fl (80-96) H 09/15/17 07:00 MCHC 33.6 g/dl (32.0-36.0) 09/15/17 07:00 RDW 13.9 % (11.6-15.6) 09/15/17 07:00 Plt Count 198 K/MM3 (134-434) 09/15/17 07:00 MPV 7.2 fl (7.5-11.1) L 09/15/17 07:00 CMP Sodium 145 mmol/L (136-145) 09/16/17 06:00 Potassium 4.1 mmol/L (3.5-5.1) 09/16/17 06:00 Chloride 114 mmol/L (98-107) H 09/16/17 06:00 Carbon Dioxide 24 mmol/L (21-32) 09/16/17 06:00 Anion Gap 7 (8-16) L 09/16/17 06:00 BUN 4 mg/dL (7-18) L 09/16/17 06:00 Creatinine 0.9 mg/dL (0.55-1.02) 09/16/17 06:00 Creat Clearance w eGFR 59.51 (>60) 09/16/17 06:00 Random Glucose 80 mg/dL (74-106) 09/16/17 06:00 Calcium 8.4 mg/dL (8.5-10.1) L 09/16/17 06:00 Total Bilirubin 0.7 mg/dL (0.2-1.0) D 09/15/17 07:00 AST 20 U/L (15-37) 09/15/17 07:00 ALT 22 U/L (12-78) 09/15/17 07:00 Alkaline Phosphatase 84 U/L (45-117) 09/15/17 07:00 Total Protein 6.3 g/dl (6.4-8.2) L 09/15/17 07:00 Albumin 3.2 g/dl (3.4-5.0) L 09/15/17 07:00 Microbiology 09/13/17 12:27 Urine - Urine Clean Catch Urine Culture - Final NO GROWTH OBTAINED Imaging: CTAP: ischemic colitis vs infectious/inflammatory colitis. Assessment: This is an 87 year old female with PMHx of HTN, sinus bradycardia, kidney stones, who presented to the ED with LLQ pain x4 days. Plan: 1) Ischemic vs. infectious colitis - Awaiting stool cultures - Patient appears well, non-toxic appearing - Continue Levaquin - continue Flagyl - BRAT diet, tolerating it well - Will need colonoscopy in 6-8 weeks - Appreciate GI consult 2) HTN - Not on home medications - Continue to monitor 3) F/E/N: - BRAT diet - Hyperkalemia: resolved 4) Prophylaxis: - Protonix - OOB ambulating - SCDs bilaterally 5) Dispo: - Awaiting final stool cultures CODE STATUS: FULL CODE Visit type - Emergency Visit Emergency Visit: Yes ED Registration Date: 09/13/17 Care time: The patient presented to the Emergency Department on the above date and was hospitalized for further evaluation of their emergent condition. - New Patient This patient is new to me today: Yes Date on this admission: 09/16/17 - Critical Care Critical Care patient: No
[2017-09-16] MEDS: ATORVASTATIN CA 10 MG TABLET (FP) PO SCH (21:59)
[2017-09-17] MEDS: metroNIDAZOLE 250 MG TABLET PO SCH (05:41)
[2017-09-17] MEDS ORDERED: PT OWN MED DRAWER 7, Y5N ONE (09:39)
[2017-09-17] MEDS: BRIMONIDINE TARTRATE 0.2% OPHTHALMIC 5 ML BOTTLE OS SCH (09:41)
[2017-09-17] MEDS: TIMOLOL 0.5% OPHTHALMIC SOL 5 ML BOTTLE OS SCH (09:41)
[2017-09-17] MEDS: PANTOPRAZOLE 40 MG TABLET (FP) PO SCH (09:41)
--- NOTE | 2017-09-17 13:02 | DS ---
Physical Examination Vital Signs: Vital Signs Temperature 98.1 F 09/17/17 05:50 Pulse Rate 61 09/17/17 05:50 Respiratory Rate 18 09/17/17 05:50 Blood Pressure 135/77 09/17/17 05:50 O2 Sat by Pulse Oximetry (%) 99 09/16/17 21:00 Labs: CBC, BMP 09/15/17 07:00 09/16/17 06:00 Discharge Summary Reason For Visit: ISCHEMIC COLITIS Current Active Problems Infectious colitis (Acute) Ischemic colitis (Acute) Personal history of colonic polyps (Acute) Hospital Course: Patient denies any diarrhea, stool cultures negative to date. Formed stools this morning. No complaints of abdominal pain. EKG reviewed, qtc unchanged from admission EKG Condition: Improved - Instructions Diet, Activity, Other Instructions: Please return to the ED with new, persistent, or worsening symptoms. Please follow-up with providers as indicated. Referrals: Ronnie Castro MD [Staff Physician] - (Please follow-up with your GI doctor as scheduled for an outpatient colonoscopy. ) Erna Rocha MD [Staff Physician] - 1 Week Disposition: HOME - Home Medications Comprehensive Discharge Medication List: Ambulatory Orders Brimonidine Tartrate/Timolol [Combigan 0.2%-0.5% Eye Drops] 10 ml OP DAILY 10/25 acetaZOLAMIDE [Diamox -] 250 mg PO TID 09/13/17 Atorvastatin Ca [Lipitor] 10 mg PO HS #30 tablet 09/17/17 levoFLOXacin [Levaquin -] 250 mg PO DAILY #5 tablet 09/17/17 metroNIDAZOLE [Flagyl -] 500 mg PO Q8H #15 tablet 09/17/17 - Discharge Referral Referred to [facility] No
[2017-09-17 14:03] VITALS: BP 157/96; PULSE 68
[2017-09-17 14:12] VITALS: TEMP 97.3
--- NOTE | 2017-09-17 14:51 | EKG ---
Test Reason : Blood Pressure : / mmHG Vent. Rate : 073 BPM Atrial Rate : 073 BPM P-R Int : 210 ms QRS Dur : 132 ms QT Int : 422 ms P-R-T Axes : 058 -59 098 degrees QTc Int : 464 ms SINUS RHYTHM WITH 1ST DEGREE A-V BLOCK LEFT AXIS DEVIATION LEFT BUNDLE BRANCH BLOCK ABNORMAL ECG WHEN COMPARED WITH ECG OF 13-SEP-2017 18:04, NO SIGNIFICANT CHANGE WAS FOUND Confirmed by MD Delbert, Dhruv ([id number]) on 09/17/2017 2:51:23 PM Referred By: Khanh HOPPER Confirmed By:Dhruv Mandujano MD
== END 2017-09-17 15:01 | disposition home or self-care (01) ==
LOC: JER 11:13 → JERBED 17:20 → J6S 18:40
PROVIDERS: ADMIT Internal Medicine; ATTEND Registered Nurse
PROC: 3E03329 Introduction of Other Anti-infective into Peripheral Vein, Percutaneous Approach (ICD-10-PCS; principal; 2017-09-13)
PROC: 3E033GC Introduction of Other Therapeutic Substance into Peripheral Vein, Percutaneous Approach (ICD-10-PCS; 2017-09-13)
PROC: 3E0337Z Introduction of Electrolytic and Water Balance Substance into Peripheral Vein, Percutaneous Approach (ICD-10-PCS; 2017-09-13)
DX: A09 Infectious gastroenteritis and colitis, unspecified (principal); K55.9 Vascular disorder of intestine, unspecified; Z86.010 Personal history of colon polyps; Z87.442 Personal history of urinary calculi; Z88.6 Allergy status to analgesic agent; Z91.013 Allergy to seafood
CPT/HCPCS: 36415; 74177-TC; 80048; 80053; 80061; 81003; 81015; 82272; 83036; 83721; 83735; 85025; 85027; 87045; 87046; 87086; 87324; 87449; 93005; 93010; 96365; 96368; 96375; 99283-25; G0378; J7030

== ENCOUNTER 2018-06-24 14:11 | Emergency (ER) | payer OTHER ==
[2018-06-24 14:20] VITALS: TEMP 98; BMI 21.4
--- NOTE | 2018-06-24 15:16 | PDOC ---
Attending Attestation - Resident Resident Name: ZenaCamelia - ED Attending Attestation I have performed the following: I have examined & evaluated the patient, The case was reviewed & discussed with the resident, I agree w/resident's findings & plan, Exceptions are as noted - HPI HPI: 06/24/18 15:13 The patient is a 88 year old female, with a significant past medical history of hypertension, sinus bradycardia, and kidney stones, who presents to the emergency department for bradycardia. Pt was at her PMD for routine f/u when she was found to have a HR in 30s. Pt denies any symptoms. The patient denies chest pain, shortness of breath, headache and dizziness. The patient denies fever, chills, nausea, vomit, diarrhea and constipation. The patient denies dysuria, frequency, urgency and hematuria. Of note, pt was admitted for bradycardia and syncope 2 years ago. Pt was in sinus gladis at that time. Evaluated by EP, who decided pt did not need pacemaker at that time. Allergies: Aspirin, shellfish-derived Past surgical history: . Social history: No reported cigarette, alcohol, or drug use. - Physicial Exam PE: 06/24/18 15:15 GENERAL: Awake, alert, and fully oriented, in no acute distress. HEAD: No signs of trauma EYES: PERRLA, EOMI, sclera anicteric, conjunctiva clear ENT: Auricles normal inspection, hearing grossly normal, nares patent, oropharynx clear without exudates. Moist mucosa NECK: Nontender, no stepoffs, Normal ROM, supple, no lymphadenopathy, JVD, or masses LUNGS: Breath sounds equal, clear to auscultation bilaterally. No wheezes, and no crackles HEART: Regular rate and rhythm, normal S1 and S2, no murmurs, rubs or gallops ABDOMEN: Soft, nontender, normoactive bowel sounds. No guarding, no rebound. No masses EXTREMITIES: Normal range of motion, no edema. No clubbing or cyanosis. No cords, erythema, or tenderness NEUROLOGICAL: Cranial nerves II through XII intact. 5/5 strength and sensation in all extremities, Normal speech, normal gait, normal cerebellar function SKIN: Warm, Dry, normal turgor, no rashes or lesions noted. - Critical Care Time Total Critical Care Time: 120 Critical Care Statement: The care of this patient involved high complexity decision making to prevent further life threatening deterioration of the patient 's condition and/or to evaluate & treat vital organ system(s) failure or risk of failure. - Medical Decision Making 06/24/18 15:15 88 F with bradycardia. EKG shows possible AV dissociation. Pt otherwise HD stable, mentating, without any symptoms. - Labs - medical office administrator - Pacer pads - Cards consult - Possible txfer for pacemaker 06/24/18 16:[address] Rodriguez, recommends txfer [place] [facility] [place] pac[place] Pt consented for txfer 06/24/18 18:13 Pt accepted for ED to ED transfer by Dr. Schmid
[2018-06-24 15:21] LABS: BASO % 1.7 % (0-2.0); EOS % 4.5 % (0-4.5); HEMATOCRIT 40.1 % (32.4-45.2); HEMOGLOBIN 13.5 GM/dL (10.7-15.3); LYMPH % 31.3 % (8-40); MCH 32.8 pg (25.7-33.7); MCHC 33.7 g/dl (32.0-36.0); MEAN CELL VOLUME 97.3 fl (80-96); MEAN PLT VOLUME 8.3 fl (7.5-11.1); MONO % 6.6 % (3.8-10.2); NEUT % 55.9 % (42.8-82.8); PLATELET COUNT 260 K/MM3 (134-434); RBC 4.12 M/mm3 (3.60-5.2); RDW 14.4 % (11.6-15.6); WHITE BLOOD COUNT 6.5 K/mm3 (4.0-10.0)
[2018-06-24 15:33] LABS: INR 0.92 (0.83-1.09); PROTHROMBIN TIME (PATIENT) 10.8 SEC (9.7-13.0)
[2018-06-24 15:35] LABS: ACTIVATED PTT 35.5 SECONDS (25.2-36.5)
--- NOTE | 2018-06-24 15:46 | PDOC ---
History of Present Illness - General Chief Complaint: Irregular Heart Beat Stated Complaint: SENT BY PCP Time Seen by Provider: 06/24/18 14:24 History Source: Patient, Family (son) Exam Limitations: No Limitations - History of Present Illness Initial Comments: 06/24/18 15:35 Pt is an 88yo F with PMH of HTN, HLD sent from PMD office for routine check up. She was found to be bradycardic in the 30s and sent to the emergency room. Pt states she feels fine. Denies syncope, lightheadedness, palpitations, chest pain , sob, confusion, abdominal pain, n/v/d. Was in [place] a few months ago and had a mechanical fall with surgery on the R hip. Not on AC. She states she was taking Bystolic but was told to stop. PMD: Aj Cards: none PMH: see hpi PSH: see hpi Meds: see med rec Allergies: ASA Past History - Past Medical History Allergies/Adverse Reactions: Allergies Allergy/AdvReac Type Severity Reaction Status Date / Time aspirin Allergy Verified 09/13/17 11:23 shellfish derived Allergy Verified 09/13/17 11:24 Home Medications: Ambulatory Orders Unobtainable 06/24/18 Cardiac Disorders: Yes (sinus gladis ist AVB) COPD: No Disorders: Yes (kidney stones) HTN: Yes - Immunization History Immunization Up to Date: Yes - Suicide/Smoking/Psychosocial Hx Smoking History: Never smoked Have you smoked in the past 12 months: No Information on smoking cessation initiated: No Hx Alcohol Use: No Drug/Substance Use Hx: No Substance Use Type: None Hx Substance Use Treatment: No Review of Systems - Review of Systems Constitutional: No: Symptoms Reported HEENTM: No: Symptoms Reported Respiratory: No: Symptoms reported Cardiac (ROS): No: Symptoms Reported ABD/GI: No: Symptoms Reported : No: Symptoms Reported Musculoskeletal: No: Symptoms Reported Integumentary: No: Symptoms Reported Neurological: No: Symptoms reported *Physical Exam - Vital Signs Last Vital Signs Temp Pulse Resp BP Pulse Ox 98 F 33 L 18 209/53 H 98 06/24/18 14:12 06/24/18 14:12 06/24/18 14:12 06/24/18 14:12 06/24/18 14:12 - Physical Exam General Appearance: Yes: Nourished, Appropriately Dressed. No: Apparent Distress HEENT: positive: EOMI, LEW, Normal ENT Inspection Neck: positive: Trachea midline, Supple Respiratory/Chest: positive: Lungs Clear, Normal Breath Sounds. negative: Crackles, Rhonchi, Wheezing Cardiovascular: positive: Bradycardia. negative: Edema, JVD, Murmur Vascular Pulses: Carotid (R): 2+, Carotid (L): 2+, Dorsalis-Pedis (R): 2+, Doralis-Pedis (L): 2+ Gastrointestinal/Abdominal: positive: Normal Bowel Sounds, Soft. 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 intact, Fully Oriented, Alert, Normal Mood/ Affect, Normal Response, Motor Strength 08/03 ED Treatment Course - LABORATORY CBC & Chemistry Diagram: 06/24/18 14:45 06/24/18 14:45 - ADDITIONAL ORDERS Additional order review: Laboratory Results 06/24/18 14:45 PT with INR 10.80 INR 0.92 06/24/18 14:45 RBC 4.12 MCV 97.3 H MCHC 33.7 RDW 14.4 MPV 8.3 D Neutrophils % 55.9 Lymphocytes % 31.3 Monocytes % 6.6 Eosinophils % 4.5 Basophils % 1.7 - RADIOLOGY Radiology Studies Ordered: Category Date Time Status CHEST X-RAY PORTABLE* [RAD] Stat Radiology 06/24/18 14:25 Taken Medical Decision Making - Medical Decision Making Pt is an 88yo F with PMH of HTN, HLD sent from PMD office for routine check up. She was found to be bradycardic in the 30s and sent to the emergency room. Pt states she feels fine. Denies syncope, lightheadedness, palpitations, chest pain , sob, confusion, abdominal pain, n/v/d. Was in [place] a few months ago and had a mechanical fall with surgery on the R hip. Not on AC. She states she was taking Bystolic but was told to stop. Vitals: bradycardic in the 30s, slight hypertension, saturating well on RA PE: mentating well, no distress. EKG: bradycardia, 3rd degree AV block. -cbc, cmp, coags, cardiac profile -cxr pt placed on pacer pads. 06/24/18 18:00 Dr. Rodriguez consulted. Saw pt. Says pt should be transferred to [facility] for possible pacemaker. -spoke to MACHINE ROOM ENGINEER who works with Dr. Cabrera. Pt will be going to [facility] under Dr. Arias. ED-ED transfer. ' Stil bradycardic, bp wnl, mentating well, no complaints. Laboratory Tests 06/24/18 14:45 Creatine Kinase 198 H Creatine Kinase Index 0.5 CK-MB (CK-2) < 1.0 Troponin I 0.13 H Pt not having chest pain. Pt transferred. *DC/Admit/Observation/Transfer Diagnosis at time of Disposition: Bradycardia, AV block, 3rd degree - Discharge Dispostion Disposition: TRANSFER ACUTE CARE/OTHER HOSP Condition at time of disposition: Good - Referrals Referrals: Erna Rocha MD [Primary Care Provider] - - Patient Instructions - Post Discharge Activity
[2018-06-24 15:49] LABS: ALBUMIN 3.2 g/dl (3.4-5.0); ALK PHOS 104 U/L (45-117); ANION GAP 9 MMOL/L (8-16); BILIRUBIN,TOTAL 0.7 mg/dL (0.2-1); BLOOD UREA NITROGEN 21 mg/dL (7-18); CALCIUM 8.6 mg/dL (8.5-10.1); CHLORIDE 109 mmol/L (98-107); CO2 24 mmol/L (21-32); CREATININE 1.3 mg/dL (0.55-1.3); GLUCOSE,RANDOM 123 mg/dL (74-106); MAGNESIUM 2.1 mg/dL (1.8-2.4); POTASSIUM 3.9 mmol/L (3.5-5.1); SGOT/AST 33 U/L (15-37); SGPT/ALT 27 U/L (13-61); SODIUM 142 mmol/L (136-145); TOT PROT 6.6 g/dl (6.4-8.2)
[2018-06-24 18:43] VITALS: BP 172/38; PULSE 42
--- NOTE | 2018-06-24 21:55 | EKG ---
Test Reason : Blood Pressure : / mmHG Vent. Rate : 036 BPM Atrial Rate : 036 BPM P-R Int : 000 ms QRS Dur : 126 ms QT Int : 552 ms P-R-T Axes : 065 -67 071 degrees QTc Int : 426 ms Poor data quality NORMAL SINUS RHYTHM WITH COMPLETE HEART BLOCK LEFT AXIS DEVIATION RIGHT BUNDLE BRANCH BLOCK LEFT VENTRICULAR HYPERTROPHY WITH REPOLARIZATION ABNORMALITY CANNOT RULE OUT SEPTAL INFARCT , AGE UNDETERMINED ABNORMAL ECG WHEN COMPARED WITH ECG OF 17-SEP-2017 13:02, CURRENT UNDETERMINED RHYTHM PRECLUDES RHYTHM COMPARISON, NEEDS REVIEW RIGHT BUNDLE BRANCH BLOCK HAS REPLACED LEFT BUNDLE BRANCH BLOCK MINIMAL CRITERIA FOR SEPTAL INFARCT ARE NOW PRESENT Confirmed by MD PEE, ANNITA ([id number]) on 06/24/2018 9:55:05 PM Referred By: Confirmed By:ANNITA GLASGOW MD
--- NOTE | 2018-07-14 19:28 | CON.CARD ---
Consult Consult Specialty:: cardiology Reason for Consultation:: bradycardia - History of Present Illness History of Present Illness: The patient is a 88 year old female (omaira. Juan Luis), with a significant past medical history of hypertension, hyperlipidemia, sinus bradycardia, syncope, and kidney stones, who presents to the emergency department for bradycardia. Pt was at her PMD for routine f/u when she was found to have a HR in 30s. Pt denies any symptoms. The patient denies chest pain, shortness of breath, headache and dizziness. The patient denies fever, chills, nausea, vomit, diarrhea and constipation. The patient denies dysuria, frequency, urgency and hematuria. Of note, pt was admitted for bradycardia and syncope 2 years ago. Pt was in sinus gladis at that time. Evaluated by EP, who decided pt did not need pacemaker at that time. Pt says she has felt fatigued for the past several weeks, but at night becomes restless, feels short of breath, and has to get up to drink milk. Allergies: Aspirin, shellfish-derived Past surgical history: . Social history: No reported cigarette, alcohol, or drug use. - History Source History Provided By: Patient, Family Member (son ), Medical Record Limitations to Obtaining History: Poor Historian - Past Medical History Cardio/Vascular: Yes: HTN, Hyperlipdemia Reproductive: Yes: Postmenopausal ...: No Heme/Onc: No: Anemia Psych: No: Addictions - Alcohol/Substance Use Hx Alcohol Use: No - Smoking History Smoking history: Never smoked Have you smoked in the past 12 months: No Home Medications - Allergies Allergies/Adverse Reactions: Allergies Allergy/AdvReac Type Severity Reaction Status Date / Time aspirin Allergy Verified 09/13/17 11:23 shellfish derived Allergy Verified 09/13/17 11:24 - Home Medications Home Medications: Ambulatory Orders Unobtainable 06/24/18 Family Disease History - Family Disease History Family History: Denies Review of Systems - Review of Systems Constitutional: reports: Lethargy, Weakness Eyes: reports: No Symptoms HENT: reports: No Symptoms Neck: reports: No Symptoms Cardiovascular: reports: Shortness of Breath Respiratory: reports: SOB Gastrointestinal: reports: No Symptoms Genitourinary: reports: No Symptoms Breasts: reports: No Symptoms Reported Musculoskeletal: reports: Muscle Weakness Neurological: reports: Weakness Endocrine: reports: No Symptoms Hematology/Lymphatic: reports: No Symptoms Psychiatric: reports: No Symptoms - Risk Factors Known Risk Factors: Yes: Age, Hypercholesterolemia, Hypertension Vital Signs: Vital Signs Temperature 98 F 06/24/18 18:42 Pulse Rate 42 L 06/24/18 18:42 Respiratory Rate 14 06/24/18 18:42 Blood Pressure 172/38 H 06/24/18 18:42 O2 Sat by Pulse Oximetry (%) 99 06/24/18 18:42 Constitutional: Yes: Anxious Eyes: Yes: WNL HENT: Yes: WNL Neck: Yes: WNL Respiratory: Yes: Regular Gastrointestinal: Yes: Soft Renal/: No: Anuria Cardiovascular: Yes: Bradycardia JVD: No Carotid Bruit: No PMI: Non-Displaced Heart Sounds: Yes: S1 Murmur: Yes: Diastolic Murmur, Grade 2 Musculoskeletal: Yes: Muscle Weakness Extremities: Yes: Cool Edema: No Peripheral Pulses WNL: Yes Integumentary: Yes: WNL Neurological: Yes: Alert, Oriented, Weakness Psychiatric: Yes: Alert, Oriented - Other Data Labs, Other Data: CBC, BMP 06/24/18 14:45 06/24/18 14:45 INR, PTT INR 0.92 (0.83-1.09) 06/24/18 14:45 Imaging - Results EKG: Image Reviewed (NSR; 3rd degree AV block; r/o septal infarct) Problem List - Problems (1) Elevated troponin I level Assessment/Plan: mild elevation of TNI, which may be due to demand ischemia form 3rd degree AV Block, though CAD cannot be entirely discounted (EKG shows possible septal infarct). Pt for transfer to [facility] for PPM; f/u TNI and EKG serially. Code(s): R74.8 - ABNORMAL LEVELS OF OTHER SERUM ENZYMES (2) AV block, 3rd degree Assessment/Plan: EKG shows 3rd degree AV block. Pt is symptomatic (periods of near-syncope; hypotension; fatigue; PND). TSH WNL. K+ WNL. I spoke with Dr. Arpit Arias, EP at [facility]. Pt will be transferred there for PPM. F/u TNI, EKGs serially. Code(s): I44.2 - ATRIOVENTRICULAR BLOCK, COMPLETE (3) Bradycardia Code(s): R00.1 - BRADYCARDIA, UNSPECIFIED (4) Near syncope Code(s): R55 - SYNCOPE AND COLLAPSE
== END 2018-06-24 19:43 | disposition short-term general hospital (02) ==
LOC: JER 14:11
DX: I44.2 Atrioventricular block, complete (principal); I10 Essential (primary) hypertension
CPT/HCPCS: 36415; 71045-TC-FY; 80053; 82550; 82553; 83735; 84484; 85025; 85610; 85730; 93005; 93010; 99285-25